=== PATIENT | female | born 1985 | race American Indian/Alaskan Native ===

== ENCOUNTER 2016-11-15 23:37 | Inpatient (IN) | payer OTHER ==
[2016-11-15] MEDS ORDERED: MOTRIN PO ONE (23:58)
[2016-11-16] MEDS ORDERED: NACL 0.9% 500 ML 500 ML IV ONE
[2016-11-16 00:33] LABS: Basophils % (Auto) 0.2 % (0.0-1.8); Hematocrit 33.5 % (30.3-42.9); Hemoglobin 10.9 gm/dl (10.1-14.3); Mean Corpuscular HGB Conc 33 % (30-34); Mean Corpuscular Hemoglobin 27 pg (28-32); Mean Corpuscular Volume 84 fl (79-97); Platelet Count 266 K/mm3 (140-440); Red Blood Count 3.99 M/mm3 (3.65-5.03); Red Cell Distribution Width 12.6 % (13.2-15.2); White Blood Count 6.6 K/mm3 (4.5-11.0)
[2016-11-16 00:45] LABS: INR 0.94 (0.87-1.13)
[2016-11-16 00:46] LABS: Partial Thromboplastin Time 25.2 Sec. (24.2-36.6)
[2016-11-16 00:48] LABS: Alanine Aminotransferase 48 units/L (7-56); Albumin 3.2 g/dL (3.9-5); Alkaline Phosphatase 88 units/L (35-129); Anion Gap 20 mmol/L; BUN/Creatinine Ratio 18.57; Blood Urea Nitrogen 13 mg/dL (7-17); Calcium 8.2 mg/dL (8.4-10.2); Carbon Dioxide 19 mmol/L (22-30); Chloride 101.1 mmol/L (98-107); Glucose 103 mg/dL (65-100); Potassium 3.8 mmol/L (3.6-5.0); Sodium 136 mmol/L (137-145); Total Protein 6.5 g/dL (6.3-8.2)
[2016-11-16 05:14] LABS: Bilirubin,Urine NEG (Negative); Blood,Urine NEG (Negative); Ketones,Urine NEG (Negative); Leukocyte Esterase,Urine TR (Negative); Mucus,Urine FEW /HPF; Nitrite,Urine NEG (Negative); Protein,Urine <15 mg/dL mg/dL (Negative); Urobilinogen,Urine < 2.0 mg/dL (<2.0)
[2016-11-16] MEDS ORDERED: MOTRIN PO ONE ×2 (07:10)
[2016-11-16] MEDS ORDERED: TYLENOL PO ONE (07:18)
[2016-11-16] MEDS ORDERED: NACL 0.9% 1000 ML 1,000 ML IV ONE ×3 (07:21→10:02)
--- NOTE | 2016-11-16 07:21 | Emergency Department Report ---
HPI - General Chief Complaint: Fever Time Seen by Provider: 11/16/16 06:52 - HPI HPI: This is a 31-year-old -[place] female presents the emergency department from home, driving herself in to be seen, with complaints of a 3 day history of fever, chest discomfort while breathing, nausea without vomiting and a one day history of a mixed dry and productive cough. The patient has been taking NSAIDs and acetaminophen for her symptoms that any relief. She has a history of lupus and wonders if this is a lupus flareup. She takes prednisone every day for her lupus. She follows up with a physician through [facility] for lupus and primary care needs. No recent travel or sick contacts at home. She denies any history of FL, CVA, PE/DVT. ED Past Medical Hx - Past Medical History Previous Medical History?: Yes Additional medical history: bronchitis,Lupus - Surgical History Past Surgical History?: Yes Additional Surgical History: 2 c-sections - Social History Smoking Status: Never Smoker Substance Use Type: None - Medications Home Medications: Home Medications Medication Instructions Recorded Confirmed Last Taken Type Ibuprofen [Motrin] 800 mg PO Q8HR PRN 11/16/16 11/16/16 11/15/16 History Mycophenolate [Cellcept] 500 mg PO BID 11/16/16 11/16/16 11/15/16 History Prednisone 10 mg PO QAM 11/16/16 11/16/16 11/15/16 History metroNIDAZOLE [Flagyl TAB] 250 mg PO Q12HR 11/16/16 11/16/16 11/15/16 History ED Review of Systems ROS: Stated complaint: LUPUS PAIN Other details as noted in HPI Comment: All other systems reviewed and negative Constitutional: chills, fever Eyes: denies: eye pain, eye discharge, vision change ENT: denies: ear pain, throat pain Respiratory: cough. denies: wheezing Cardiovascular: chest pain. denies: palpitations Gastrointestinal: nausea. denies: abdominal pain, vomiting Genitourinary: denies: urgency, dysuria, discharge Musculoskeletal: denies: back pain, joint swelling, arthralgia Skin: denies: rash, lesions Neurological: denies: headache, weakness, paresthesias Physical Exam - Physical Exam Vital Signs: Vital Signs 11/15/16 11/16/16 11/16/16 23:51 06:13 07:03 Temperature 102.5 F H 99.0 F 101.7 F H Pulse Rate 123 H 105 H 79 Respiratory 20 16 18 Rate Blood Pressure 116/80 Blood Pressure 134/95 130/59 [Right] O2 Sat by Pulse 100 100 100 Oximetry Physical Exam: GENERAL: The patient is well-developed well-nourished. HEENT: Normocephalic. Atraumatic. Extraocular motions are intact. Patient has moist mucous membranes. Pupils equal reactive to light bilaterally. Oropharynx is clear without tonsillar hypertrophy, erythema or exudates. NECK: Supple. Trachea is midline. CHEST/LUNGS: Clear to auscultation. There is no respiratory distress noted. No tachypnea or accessory muscle use. No cough heard during examination. HEART/CARDIOVASCULAR: Regular. There is no tachycardia. There is no gallop rub or murmur. ABDOMEN: Abdomen is soft, nontender. Patient has normal bowel sounds. There is no abdominal distention. SKIN: Skin is warm and dry. No appreciable edema. NEURO: The patient is awake, alert, and oriented. The patient is cooperative. The patient has no focal neurologic deficits. The patient has normal speech. MUSCULOSKELETAL: There is no tenderness or deformity. There is no limitation range of motion. There is no evidence of acute injury. ED Course Vital Signs 11/15/16 11/16/16 11/16/16 23:51 06:13 07:03 Temperature 102.5 F H 99.0 F 101.7 F H Pulse Rate 123 H 105 H 79 Respiratory 20 16 18 Rate Blood Pressure 116/80 Blood Pressure 134/95 130/59 [Right] O2 Sat by Pulse 100 100 100 Oximetry ED Medical Decision Making - Lab Data Result diagrams: 11/16/16 00:12 11/16/16 00:12 - EKG Data -: EKG Interpreted by Me EKG shows normal: sinus rhythm, axis, intervals, QRS complexes, ST-T waves Rate: tachycardia (116 bpm) - EKG Data When compared to previous EKG there are: previous EKG unavailable Interpretation: normal EKG (with tachycardia) - Radiology Data Radiology results: report reviewed, image reviewed interpreted by me: Chest x-ray did not show any acute process. Heart is normal shape and size. No effusions. No pneumothorax. No signs of pneumonia seen. CTA CHEST INDICATION: Chest pain, elevated d-dimer. COMPARISON: None similar. FINDINGS: Chest CTA performed following intravenous administration of 100 cc of Omnipaque 350. Rotational MIP's also obtained. Borderline cardiomegaly. No effusions. Slight pulmonary arterial hypertension. No aortic aneurysm, dissection or suspicious pulmonary arterial filling defects, to the extent assessed. Patent central airway. No size significant hilar or mediastinal lymphadenopathy, though innumerable bilateral axillary lymph nodes measure up to 1.6 cm. Numerous bilateral supraclavicular lymph nodes as well measure up to 1.5 x 1 cm as on axial image 10, series 2. Unremarkable thyroid. No focal suspicious lung nodules or masses. Slight nonspecific distal esophageal prominence or thickening. Left hepatic lobe tip wraps around the spleen in the left upper quadrant. Faint 4 mm density in the gallbladder on axial image 226 may represent subtle cholelithiasis. Approximately 3.3 x 2.1 cm nonspecific soft tissue masslike density near the sarah hepatis just above the pancreatic neck suspected as on axial image 214 on series 2, amongst others. Similar subtle hypodensity measuring 1.8 cm may also project between the left adrenal and the pancreatic tail as on axial image 206. Unremarkable bones. CONCLUSION: No CT evidence of pulmonary embolism with various other findings, including mild cardiomegaly, slight pulmonary arterial hypertension, numerous shotty bilateral axillary and supraclavicular lymph nodes, cholelithiasis and abnormal soft tissue/possible lymph node masses suspected in the imaged upper abdomen, as detailed above. Lymphoma may be considered clinically in the given setting. - Medical Decision Making 31-year-old female presents emergency Department with 3 day history of fever that will not resolve despite using NSAIDs and acetaminophen as well as some chest pain and now a development of a cough. Patient does have fever and tachycardia upon presentation. She was given a few liters of IV fluid, 2 doses of ibuprofen, one of the Tylenol and eventually her fever does break. Chest x- ray does not show any sign of pneumonia, pleural effusions or any acute process. Patient has a set of negative troponins. Her d-dimer was very elevated so a CT angiography of the chest was done that came back showing no pulmonary embolism or dissection but concern for innumerable axillary lymphadenopathy that raises suspicion for lymphoma. Patient does not appear to be in distress, however the patient does have a history of lupus, this fever of unknown source and chest pain. With a differential includes pericarditis, myocarditis, among other conditions, the patient will be admitted to the hospital for further evaluation and treatment and has been accepted for admission by the hospitalist, Dr lai. - Differential Diagnosis FL, costochondritis, pneumonia, pericarditis, myocarditis Critical Care Time: No Critical care attestation.: If time is entered above; I have spent that time in minutes in the direct care of this critically ill patient, excluding procedure time. ED Disposition Clinical Impression: Lymphadenopathy, axillary, Abnormal CT of the chest Lupus Qualifiers: Systemic lupus erythematosus type: unspecified Systemic lupus erythematosus organ involvement: unspecified Qualified Code(s): M32.9 - Systemic lupus erythematosus, unspecified Fever Qualifiers: Fever type: unspecified Qualified Code(s): R50.9 - Fever, unspecified Chest pain Qualifiers: Chest pain type: unspecified Qualified Code(s): R07.9 - Chest pain, unspecified Disposition: OP ADMITTED IP TO THIS HOSP Is pt being admited?: Yes Does the pt Need Aspirin: Yes Condition: Stable Instructions: Chest Pain (ED) Referrals: PRIMARY CARE, [Primary Care Provider] - 3-5 Days Time of Disposition: 13:43
[2016-11-16] MEDS ORDERED: NACL ONE (08:10)
--- NOTE | 2016-11-16 09:13 | XRay Report ---
CHEST ONE VIEW INDICATION: Possible sepsis. Difficulty breathing and fever for 3 days. History of lupus. COMPARISON: 11/26/2012. FINDINGS: Portable, single, frontal chest radiograph demonstrates stable cardiomediastinal silhouette and clear lungs, given slightly poorer inspiration. Unremarkable bones. CONCLUSION: No acute disease in the chest. Thank you for the opportunity to participate in this patient's care.
--- NOTE | 2016-11-16 09:14 | Cat Scan Report ---
CTA CHEST INDICATION: Chest pain, elevated d-dimer. COMPARISON: None similar. FINDINGS: Chest CTA performed following intravenous administration of 100 cc of Omnipaque 350. Rotational MIP's also obtained. Borderline cardiomegaly. No effusions. Slight pulmonary arterial hypertension. No aortic aneurysm, dissection or suspicious pulmonary arterial filling defects, to the extent assessed. Patent central airway. No size significant hilar or mediastinal lymphadenopathy, though innumerable bilateral axillary lymph nodes measure up to 1.6 cm. Numerous bilateral supraclavicular lymph nodes as well measure up to 1.5 x 1 cm as on axial image 10, series 2. Unremarkable thyroid. No focal suspicious lung nodules or masses. Slight nonspecific distal esophageal prominence or thickening. Left hepatic lobe tip wraps around the spleen in the left upper quadrant. Faint 4 mm density in the gallbladder on axial image 226 may represent subtle cholelithiasis. Approximately 3.3 x 2.1 cm nonspecific soft tissue masslike density near the sarah hepatis just above the pancreatic neck suspected as on axial image 214 on series 2, amongst others. Similar subtle hypodensity measuring 1.8 cm may also project between the left adrenal and the pancreatic tail as on axial image 206. Unremarkable bones. CONCLUSION: No CT evidence of pulmonary embolism with various other findings, including mild cardiomegaly, slight pulmonary arterial hypertension, numerous shotty bilateral axillary and supraclavicular lymph nodes, cholelithiasis and abnormal soft tissue/possible lymph node masses suspected in the imaged upper abdomen, as detailed above. Lymphoma may be considered clinically in the given setting. I phoned the above results to Dr. Pelayo in the ER, 9 AM, 11/16/2016. Thank you for the opportunity to participate in this patient's care.
--- NOTE | 2016-11-16 11:25 | Admit Criteria Form ---
Admission Criteria Documentation: MUSCULOSKELETAL DISEASE GRG Clinical Indications for Admission to Inpatient Care (Place 'X' for any and all applicable criteria): Hospital admission is needed for appropriate care of the patient because of 1 or more of the following: [ ]I. Fracture, dislocation, or other musculoskeletal injury requiring inpatient care(medical) as indicated by 1 or more of the following(4)(5)(6)(7) [ ]a) Vertebral fracture requiring observation for instability or neurologic compromise (8) [ ]b) Compartment syndrome (proven or cannot be ruled out during observation level of care) (9) [ ]c) Limb-threatening injury [ ]d) Major injury requiring inpatient stabilization such as traction initiation or external fixation before internal fixation or closure of complex or open fracture [ ]e) Major injury requiring inpatient treatment after emergency or observation level care (as appropriate) [ ]f) Severe pain requiring acute inpatient management [ ]g) Injury with suspicion of abuse or neglect (eg., child, dependent elderly) [ ]II. Newly diagnosed or suspected bone, joint, or orthopedic device infection (e.g., osteomyelitis, septic arthritis) needing 1 or more of the following(1)(2)(3) [ ]a) IV antibiotics that cannot be initiated in other than inpatient setting (e.g., patient too unstable or home infusion not available) [ ]b) Device removal or replacement [ ]c) Bone or soft tissue debridement [ ]d) Joint drainage (drain placement or repetitive aspirations) [X]III. Severe rheumatologic disease (e.g., systemic lupus erythematosus, rheumatoid arthritis) with complications or comorbidities (Also use Optimal Recovery Care Criteria or General Recovery Criteria as appropriate on the basis of predominant condition), including 1 or more of the following( 10)(11)(12)(13) [ ]a) Severe infection (e.g., RADIOLOGY ASST infection, sepsis) (14) [ ]b) Respiratory complications, including 1 or more of the following : [ ]i) Pleural effusion with respiratory compromise [ ]ii) Pulmonary hypertension with congestive failure [ ]iii) Respiratory failure [ ]iv) Pulmonary hemorrhage (15) [ ]c) Hematologic disease, including 1 or more of the following: [ ]i) Coagulopathy with bleeding [ ]ii) Thrombosis with hypercoagulable state [ ]iii) Thrombotic thrombocytopenic purpura [ ]d) Cerebritis with seizures, psychosis, or other severe abnormalities [ ]e) Vertebral destruction with monitoring needed for cervical myelopathy& possible respiratory compromise [X]f) Exacerbation that requires inpatient treatment (e.g., intravenous immunosuppression) (16) [ ]g) Acute renal failure [ ]h) Cerebritis with seizures, psychosis, Altered mental status, or other neurologic abnormalities [ ]i) Pericardial effusion with tamponade [ ]j) Vertebral destruction, with monitoring needed for cervical myelopathy and possible respiratory compromise [ ]IV. Severe vasculitis with complications or comorbidities (Also use Optimal Recovery Care Criteria General Recovery Criteria as appropriate on the basis of predominant condition), including 1 or more of the following(11)(12)(17)(18)(19)(20) [ ]a) Exacerbation that requires inpatient treatment (e.g., intravenous immunosuppression) (19)(21) [ ]b) Pulmonary hemorrhage (15) [ ]c) RADIOLOGY ASST vasculitis with seizures, psychosis, Altered mental status that is severe or persistent, or other severe abnormalities (22) [ ]d) Cerebral infarction [ ]e) Gastrointestinal ischemia [ ]f) Gangrene or threatened amputation [ ]g) Renal failure (16) [ ]h) Other significant complications of vasculitis ( eg., tissue or organ ischemia, organ dysfunction ) [ ]V. Severe myopathy as indicated by 1 or more of the following (28)(29) [ ]a) New onset of airway compromise or inability to swallow [ ]b) Respiratory deterioration with observation needed for impending respiratory failure [ ]c) Exacerbation that requires inpatient treatment (e.g., intravenous immunosuppression) [ ]. Severe crystal gout (arthropathy) indicated by 1 or more of the following (23)(24) [ ]a) Severe pain requiring acute inpatient management [ ]b) Exacerbation that requires inpatient treatment (e.g., intravenous treatment) [ ]VII.Rhabdomyolysis and 1 or more of the following (25)(26)(27) [ ]a) Acute renal failure [ ]b) Need for intravenous hydration after emergency or observation level care (as appropriate) [ ]c) Inability to maintain oral hydration [ ]d) Change in mental status [ ]e) Electrolyte abnormality that remains after emergency or observation level care (as appropriate) [ ]VIII Post amputation complication, as indicated by ANY ONE of the following [ ]a) Infection [ ]b) Dehiscence [ ]c) Myodesis failure [ ]IX. Severe pain requiring acute inpatient management due to musculoskeletal condition [ ]X. Musculoskeletal Disease and ALL of the following: [ ]a) Symptom or finding for which emergency and observation care have failed or are not considered appropriate (Use General Criteria: Observation Care as appropriate) [ ]b) Presence of ANY ONE of the following [ ]i) A General Admission Criteria [ ]ii) A Pediatric General Admission Criteria The original [facility] [employer] content created by [facility] has been revised. The portions of the content which have been revised are identified through the use of italic text or in bold, and [facility] has neither reviewed nor approved the modified material. All other unmodified content is copyright [facility] [employer]. Please see references footnoted in the [facility] Admission Criteria Met: Yes
[2016-11-16] MEDS ORDERED: BABY ASPIRIN PO ONE (13:43)
[2016-11-16] MEDS ORDERED: NITROSTAT SL PRN (13:44)
[2016-11-16] MEDS ORDERED: SODIUM CHLORIDE FLUSH SYRINGE 10 ML IV PRN (13:44)
--- NOTE | 2016-11-16 14:00 | History and Physical Report ---
History of Present Illness Date of examination: 11/16/16 Chief complaint: Chest pain History of present illness: 31-year-old -[place] female with past medical history significant for SLE presented to the emergency department complaining of mid sternal chest pain for the last 3 days. Chest pain is pressure like, 8/10, with no radiation, associated with SOB, no relieving or alleviating factors. Patient has fever for the last 3 days not relieved with Tylenol. The patient's malar flush is getting worse and complaining of sorethroat and increased in the the size of the lymphnodes. REVIEW OF SYSTEMS: GENERAL: no weight change, no fatigue, no fever HEAD: no head ache EYES: no blurry vision, no acute visual loss EARS: no hearing loss, no discharge, no earache NOSE: no stuffiness, no sneezing, no discharge MOUTH, THROAT AND NECK: no bleeding gums, no sore throat, no swollen neck CARDIAC: no palpitations, no dyspnea on exertion, no orthopnea, no PND, no edema , + chest pain RESPIRATORY: +shortness of breath, no wheeze, no cough, no sputum, no hemoptysis , no asthma GI: no decreased appetite, no nausea, no vomiting, no dysphagia, no diarrhea, no constipation, no abdominal pain. URINARY: no change in frequency, no urgency, no polyuria, no hematuria, no incontinence MUSCULOSKELETAL: no muscle weakness, no pain, no joint stiffness NEUROLOGIC: no loss of sensation/numbness, no tingling, no tremors, no weakness/ paralysis HEMATOLOGIC: no anemia, no easy bruising SKIN: Malar rash. ENDOCRINE: no heat/cold intolerance, no polyuria, no polydipsia, no thyroid problems, no diabetes. PSYCHIATRIC: no anxiety, no depression, no suicidal ideations. Past History Past Medical History: other (SLE) Past Surgical History: Social history: full code. denies: smoking, alcohol abuse, prescription drug abuse, IV drug use Family history: no significant family history Medications and Allergies Allergies Allergy/AdvReac Type Severity Reaction Status Date / Time acetaminophen [From Percocet] Allergy Hives Verified 07/30/14 08:04 hydroxychloroquine sulfate Allergy Shortness Verified 11/15/16 23:53 [From Plaquenil] of Breath oxycodone HCl [From Percocet] Allergy Hives Verified 07/30/14 08:04 Home Medications Medication Instructions Recorded Confirmed Last Taken Type Ibuprofen [Motrin] 800 mg PO Q8HR PRN 11/16/16 11/16/16 11/15/16 History Mycophenolate [Cellcept] 500 mg PO BID 11/16/16 11/16/16 11/15/16 History Prednisone 10 mg PO QAM 11/16/16 11/16/16 11/15/16 History metroNIDAZOLE [Flagyl TAB] 250 mg PO Q12HR 11/16/16 11/16/16 11/15/16 History Active Meds: Active Medications Aspirin (Baby Aspirin) 81 mg PO QDAY MORA Docusate Sodium (Colace) 100 mg PO BID MORA Enoxaparin Sodium (Lovenox) 40 mg SUB-Q QDAY MORA Famotidine (Pepcid) 20 mg PO BID MORA Ibuprofen (Motrin) 800 mg PO Q8HR PRN PRN Reason: Pain Methylprednisolone Sodium Succinate (Solu-Medrol) 40 mg IV BID MORA Morphine Sulfate (Morphine) 2 mg IV Q4H PRN PRN Reason: Chest Pain Mycophenolate Mofetil (Cellcept) 500 mg PO BID MORA Nitroglycerin (Nitrostat) 0.4 mg SL Q5M PRN PRN Reason: Chest Pain Sodium Chloride (Sodium Chloride Flush Syringe 10 Ml) 10 ml IV PRN PRN PRN Reason: LINE FLUSH Exam - Physical Exam Narrative exam: Not in cardiopulmonary distress. The patient appeared well nourished and normally developed. Vital signs as documented. Head exam is unremarkable. No scleral icterus . Neck is without jugular venous distension, thyromegaly, or carotid bruits. Lungs are clear to auscultation. Cardiac exam reveals regular rate and Rhythm. First and second heart sounds normal. No murmurs, rubs or gallops. Abdominal exam reveals normal bowel sounds, no masses, no organomegaly and no aortic enlargement. Extremities are nonedematous and both femoral and pedal pulses are normal. Skin malar rash. [employer]IOR [employer]: Alert and oriented 3. No focal weakness. - Constitutional Vitals: Temp Pulse Resp BP Pulse Ox 98.7 F 101 H 18 100/51 98 11/16/16 11:41 11/16/16 11:41 11/16/16 11:41 11/16/16 11:41 11/16/16 11:41 Results - Labs CBC & Chem 7: 11/16/16 00:12 11/16/16 00:12 Labs: Laboratory Last Values WBC 6.6 K/mm3 (4.5-11.0) 11/16/16 00:12 RBC 3.99 M/mm3 (3.65-5.03) 11/16/16 00:12 Hgb 10.9 gm/dl (10.1-14.3) 11/16/16 00:12 Hct 33.5 % (30.3-42.9) 11/16/16 00:12 MCV 84 fl (79-97) 11/16/16 00:12 MCH 27 pg (28-32) L 11/16/16 00:12 MCHC 33 % (30-34) 11/16/16 00:12 RDW 12.6 % (13.2-15.2) L 11/16/16 00:12 Plt Count 266 K/mm3 (140-440) 11/16/16 00:12 Lymph % (Auto) 10.5 % (13.4-35.0) L 11/16/16 00:12 Porter % (Auto) 3.7 % (0.0-7.3) 11/16/16 00:12 Eos % (Auto) 0.0 % (0.0-4.3) 11/16/16 00:12 Baso % (Auto) 0.2 % (0.0-1.8) 11/16/16 00:12 Lymph # 0.7 K/mm3 (1.2-5.4) L 11/16/16 00:12 Porter # 0.2 K/mm3 (0.0-0.8) 11/16/16 00:12 Eos # 0.0 K/mm3 (0.0-0.4) 11/16/16 00:12 Baso # 0.0 K/mm3 (0.0-0.1) 11/16/16 00:12 Seg Neutrophils % 85.6 % (40.0-70.0) H 11/16/16 00:12 Seg Neutrophils # 5.6 K/mm3 (1.8-7.7) 11/16/16 00:12 PT 12.5 Sec. (12.2-14.9) 11/16/16 00:12 INR 0.94 (0.87-1.13) 11/16/16 00:12 APTT 25.2 Sec. (24.2-36.6) 11/16/16 00:12 D-Dimer 1339.81 ng/mlDDU (0-234) H 11/16/16 07:29 VBG pH 7.507 (7.320-7.420) H 11/16/16 00:12 Sodium 136 mmol/L (137-145) L 11/16/16 00:12 Potassium 3.8 mmol/L (3.6-5.0) 11/16/16 00:12 Chloride 101.1 mmol/L (98-107) 11/16/16 00:12 Carbon Dioxide 19 mmol/L (22-30) L 11/16/16 00:12 Anion Gap 20 mmol/L 11/16/16 00:12 BUN 13 mg/dL (7-17) 11/16/16 00:12 Creatinine 0.7 mg/dL (0.7-1.2) 11/16/16 00:12 Estimated GFR > 60 ml/min 11/16/16 00:12 BUN/Creatinine Ratio 18.57 % 11/16/16 00:12 Glucose 103 mg/dL (65-100) H 11/16/16 00:12 Lactic Acid 1.50 mmol/L (0.7-2.0) 11/16/16 03:06 Calcium 8.2 mg/dL (8.4-10.2) L 11/16/16 00:12 Total Bilirubin 0.20 mg/dL (0.1-1.2) 11/16/16 00:12 AST 53 units/L (5-40) H 11/16/16 00:12 ALT 48 units/L (7-56) 11/16/16 00:12 Alkaline Phosphatase 88 units/L (35-129) 11/16/16 00:12 Troponin T < 0.010 ng/mL (0.00-0.029) 11/16/16 06:15 Total Protein 6.5 g/dL (6.3-8.2) 11/16/16 00:12 Albumin 3.2 g/dL (3.9-5) L 11/16/16 00:12 Albumin/Globulin Ratio 1.0 % 11/16/16 00:12 HCG, Qual Negative (Negative) 11/16/16 00:12 Urine Color Yellow (Yellow) 11/16/16 04:39 Urine Turbidity Clear (Clear) 11/16/16 04:39 Urine pH 6.0 (5.0-7.0) 11/16/16 04:39 Ur Specific [place] 1.018 (1.003-1.030) 11/16/16 04:39 Urine Protein <15 mg/dl mg/dL (Negative) 11/16/16 04:39 Urine Glucose (UA) Neg mg/dL (Negative) 11/16/16 04:39 Urine Ketones Neg mg/dL (Negative) 11/16/16 04:39 Urine Blood Neg (Negative) 11/16/16 04:39 Urine Nitrite Neg (Negative) 11/16/16 04:39 Urine Bilirubin Neg (Negative) 11/16/16 04:39 Urine Urobilinogen < 2.0 mg/dL (<2.0) 11/16/16 04:39 Ur Leukocyte Esterase Tr (Negative) 11/16/16 04:39 Urine WBC (Auto) 1.0 /HPF (0.0-6.0) 11/16/16 04:39 Urine RBC (Auto) 1.0 /HPF (0.0-6.0) 11/16/16 04:39 U Epithel Cells (Auto) 8.0 /HPF (0-13.0) 11/16/16 04:39 Urine Mucus Few /HPF 11/16/16 04:39 Assessment and Plan Assessment and plan: Chest pain - serial cardiac enzymes and EKG - Stress test tomorrow Lupus flare up - solu-medrol - restart her home medications Fever - likely due to SLE flare UP - Ibuprofen - Blood culture DVT prophylaxis Lovenox Disposition To telemetry floor. Advance Directives: Yes (full code) VTE prophylaxis?: Chemical Plan of care discussed with patient/family: Yes
[2016-11-16] MEDS: MORPHINE IV PRN ×2 (14:45→21:35)
[2016-11-16 17:19] LABS: Creatine Kinase 62 units/L (30-135)
[2016-11-16 17:20] LABS: Creatine Kinase MB < 1.0 ng/mL (0.0-4.0)
[2016-11-16] MEDS ORDERED: CITRATE OF MAGNESIA PO ONE (18:59)
[2016-11-16 21:24] LABS: Creatine Kinase 62 units/L (30-135); Creatine Kinase MB < 1.0 ng/mL (0.0-4.0)
[2016-11-16] MEDS: PEPCID PO SCH (21:35)
[2016-11-16] MEDS: COLACE PO SCH (21:36)
[2016-11-16] MEDS: CELLCEPT PO SCH (22:31)
[2016-11-17] MEDS ORDERED: LEXISCAN IV ONE ×3 (08:25→10:34)
--- NOTE | 2016-11-17 11:17 | Progress Note ---
Assessment and Plan Assessment and plan: Patient is a 31-year-old woman with history of SLE that was diagnosed May 2016. She goes to the rheumatology lupus clinic at [facility]. She was allergic to plaquenil and another rheumatologic agent that she cant remember; so they put her on CellCept but she has not experienced any improvement in her symptoms or rash. Her rash, axillary and cervical lymph nodes are worsening. Her fatigue is worsening. 2 weeks ago she was at [facility] with similar complaints. She drove herself to [facility] emergency department yesterday with chest pains, counseling done and high fevers. CTA of the chest showed lymphadenopathy axillary and supraclavicular lymph nodes, cholelithiasis, no PE. Cardiac enzymes and troponin negative. -Chest pain, atypical most likely due to lymphadenopathy rule out ischemia: Stress test pending, echo pending -SLE flare: Treat with IV steroids -Immunocompromise state on CellCept self, concerning for infection with high fevers, UA negative for UTI, CT chest did not mention any pneumonia, white blood cell count normal but she is on CellCept (do not know her if she was tested for Tb at [place]), blood culture pending, worsening lymphadenopathy and high fevers may be associated with lymphoma: Consulted hematology oncology, added empiric antibiotic -DVT prophylaxis: SCDs and subcutaneous Lovenox full code History Interval history: Patient seen and examined. Follow up on chest pains. Chest pains are diffuse and constant associated with shortness of breath. Overnight uneventful. No n/v or severe headaches. Imaging, old records, testing, labs, nursing notes reviewed. Hospitalist Physical - Physical exam Narrative exam: GEN: Ill-appearing BMI 34.2 NAD, AWAKE, ALERT, ORIENTATED 3 HEENT: NCAT, butterfly rash across bridge of nose, EOMI, OP CLEAR, alopecia NECK: SUPPLE, NO THYROMEGALY, NO JVD, NO LAD CVS: RRR, NORMAL S1S2 LUNGS/CHEST: CTA B, NORMAL CHEST EXPANSION B, GOOD AIR ENTRY B ABD: SOFT, diffuse tenderness llq especially, GBS, NO REBOUND OR GUARDING EXT/SKIN: NO SIGNIFICANT EDEMA, discoid plaques on ext MSK: FROM X 4 EXTREMITIES NEURO: CN 2-12 GROSSLY INTACT, NO new FOCAL DEFICITS PSY: CALM - Constitutional Vitals: Temp Pulse Resp BP Pulse Ox 98.2 F 88 16 116/62 95 11/17/16 07:45 11/17/16 07:45 11/17/16 07:45 11/17/16 07:45 11/17/16 07:45 Results - Labs CBC & Chem 7: 11/16/16 00:12 11/16/16 00:12 Labs: Laboratory Last Values WBC 6.6 K/mm3 (4.5-11.0) 11/16/16 00:12 RBC 3.99 M/mm3 (3.65-5.03) 11/16/16 00:12 Hgb 10.9 gm/dl (10.1-14.3) 11/16/16 00:12 Hct 33.5 % (30.3-42.9) 11/16/16 00:12 MCV 84 fl (79-97) 11/16/16 00:12 MCH 27 pg (28-32) L 11/16/16 00:12 MCHC 33 % (30-34) 11/16/16 00:12 RDW 12.6 % (13.2-15.2) L 11/16/16 00:12 Plt Count 266 K/mm3 (140-440) 11/16/16 00:12 Lymph % (Auto) 10.5 % (13.4-35.0) L 11/16/16 00:12 [place] % (Auto) 3.7 % (0.0-7.3) 11/16/16 00:12 Eos % (Auto) 0.0 % (0.0-4.3) 11/16/16 00:12 Baso % (Auto) 0.2 % (0.0-1.8) 11/16/16 00:12 Lymph # 0.7 K/mm3 (1.2-5.4) L 11/16/16 00:12 [place] # 0.2 K/mm3 (0.0-0.8) 11/16/16 00:12 Eos # 0.0 K/mm3 (0.0-0.4) 11/16/16 00:12 Baso # 0.0 K/mm3 (0.0-0.1) 11/16/16 00:12 Seg Neutrophils % 85.6 % (40.0-70.0) H 11/16/16 00:12 Seg Neutrophils # 5.6 K/mm3 (1.8-7.7) 11/16/16 00:12 PT 12.5 Sec. (12.2-14.9) 11/16/16 00:12 INR 0.94 (0.87-1.13) 11/16/16 00:12 APTT 25.2 Sec. (24.2-36.6) 11/16/16 00:12 D-Dimer 1339.81 ng/mlDDU (0-234) H 11/16/16 07:29 VBG pH 7.507 (7.320-7.420) H 11/16/16 00:12 Sodium 136 mmol/L (137-145) L 11/16/16 00:12 Potassium 3.8 mmol/L (3.6-5.0) 11/16/16 00:12 Chloride 101.1 mmol/L (98-107) 11/16/16 00:12 Carbon Dioxide 19 mmol/L (22-30) L 11/16/16 00:12 Anion Gap 20 mmol/L 11/16/16 00:12 BUN 13 mg/dL (7-17) 11/16/16 00:12 Creatinine 0.7 mg/dL (0.7-1.2) 11/16/16 00:12 Estimated GFR > 60 ml/min 11/16/16 00:12 BUN/Creatinine Ratio 18.57 % 11/16/16 00:12 Glucose 103 mg/dL (65-100) H 11/16/16 00:12 Lactic Acid 1.50 mmol/L (0.7-2.0) 11/16/16 03:06 Calcium 8.2 mg/dL (8.4-10.2) L 11/16/16 00:12 Total Bilirubin 0.20 mg/dL (0.1-1.2) 11/16/16 00:12 AST 53 units/L (5-40) H 11/16/16 00:12 ALT 48 units/L (7-56) 11/16/16 00:12 Alkaline Phosphatase 88 units/L (35-129) 11/16/16 00:12 Total Creatine Kinase 62 units/L (30-135) 11/16/16 20:42 CK-MB (CK-2) < 1.0 ng/mL (0.0-4.0) 11/16/16 20:42 CK-MB (CK-2) Rel Index 1.6 (0-4) 11/16/16 20:42 Troponin T < 0.010 ng/mL (0.00-0.029) 11/16/16 20:42 Total Protein 6.5 g/dL (6.3-8.2) 11/16/16 00:12 Albumin 3.2 g/dL (3.9-5) L 11/16/16 00:12 Albumin/Globulin Ratio 1.0 % 11/16/16 00:12 Triglycerides 227 mg/dL (2-149) H 11/16/16 06:15 Cholesterol 161 mg/dL (50-199) 11/16/16 06:15 LDL Cholesterol Direct 70 mg/dL (50-130) 11/16/16 06:15 HDL Cholesterol 46 mg/dL (40-59) 11/16/16 06:15 Cholesterol/HDL Ratio 3.50 % 11/16/16 06:15 HCG, Qual Negative (Negative) 11/16/16 00:12 Urine Color Yellow (Yellow) 11/16/16 04:39 Urine Turbidity Clear (Clear) 11/16/16 04:39 Urine pH 6.0 (5.0-7.0) 11/16/16 04:39 Ur Specific [place] 1.018 (1.003-1.030) 11/16/16 04:39 Urine Protein <15 mg/dl mg/dL (Negative) 11/16/16 04:39 Urine Glucose (UA) Neg mg/dL (Negative) 11/16/16 04:39 Urine Ketones Neg mg/dL (Negative) 11/16/16 04:39 Urine Blood Neg (Negative) 11/16/16 04:39 Urine Nitrite Neg (Negative) 11/16/16 04:39 Urine Bilirubin Neg (Negative) 11/16/16 04:39 Urine Urobilinogen < 2.0 mg/dL (<2.0) 11/16/16 04:39 Ur Leukocyte Esterase Tr (Negative) 11/16/16 04:39 Urine WBC (Auto) 1.0 /HPF (0.0-6.0) 11/16/16 04:39 Urine RBC (Auto) 1.0 /HPF (0.0-6.0) 05/26/17 04:39 U Epithel Cells (Auto) 8.0 /HPF (0-13.0) 11/16/16 04:39 Urine Mucus Few /HPF 11/16/16 04:39
[2016-11-17] MEDS: ROCEPHIN/NS 1 GM/50 ML 1 GM/50 ML BAG IV SCH (14:54)
[2016-11-17] MEDS: LOVENOX SUB-Q SCH (14:55)
[2016-11-17] MEDS: BABY ASPIRIN PO SCH (14:55)
[2016-11-17] MEDS: COLACE PO SCH ×2 (14:56→22:07)
[2016-11-17] MEDS: PEPCID PO SCH ×2 (14:56→22:07)
[2016-11-17] MEDS: MOTRIN PO PRN (15:28)
[2016-11-17] MEDS: CELLCEPT PO SCH ×2 (16:41→22:07)
[2016-11-18 06:11] LABS: Hematocrit 32.6 % (30.3-42.9); Hemoglobin 10.5 gm/dl (10.1-14.3); Mean Corpuscular HGB Conc 32 % (30-34); Mean Corpuscular Hemoglobin 27 pg (28-32); Mean Corpuscular Volume 84 fl (79-97); Platelet Count 268 K/mm3 (140-440); Red Blood Count 3.88 M/mm3 (3.65-5.03); Red Cell Distribution Width 12.6 % (13.2-15.2); White Blood Count 5.5 K/mm3 (4.5-11.0)
[2016-11-18 06:42] LABS: BUN/Creatinine Ratio TNR; Blood Urea Nitrogen TNR mg/dL (7-17); Carbon Dioxide TNR mmol/L (22-30); Chloride TNR mmol/L (98-107); Glucose TNR mg/dL (65-100); Potassium TNR mmol/L (3.6-5.0); Sodium TNR mmol/L (137-145)
[2016-11-18 06:43] LABS: Anion Gap TNR mmol/L; Calcium TNR mg/dL (8.4-10.2)
[2016-11-18 07:49] LABS: Anion Gap 18 mmol/L; Blood Urea Nitrogen 9 mg/dL (7-17); Calcium 8.4 mg/dL (8.4-10.2); Carbon Dioxide 23 mmol/L (22-30); Chloride 104.2 mmol/L (98-107); Glucose 117 mg/dL (65-100); Potassium 4.3 mmol/L (3.6-5.0); Sodium 141 mmol/L (137-145)
[2016-11-18] MEDS: MOTRIN PO PRN (08:12)
[2016-11-18] MEDS: LOVENOX SUB-Q SCH (10:34)
[2016-11-18] MEDS: ROCEPHIN/NS 1 GM/50 ML 1 GM/50 ML BAG IV SCH (10:34)
[2016-11-18] MEDS: BABY ASPIRIN PO SCH (10:50)
[2016-11-18] MEDS: PEPCID PO SCH ×2 (10:50→22:07)
[2016-11-18] MEDS: COLACE PO SCH ×2 (10:50→22:07)
[2016-11-18] MEDS: CELLCEPT PO SCH ×2 (10:59→22:07)
--- NOTE | 2016-11-18 14:03 | Progress Note ---
Assessment and Plan Assessment and plan: Patient is a 31-year-old woman with history of SLE that was diagnosed May 2016. She goes to the rheumatology lupus clinic at [facility]. She was allergic to plaquenil and another rheumatologic agent that she cant remember; so they put her on CellCept but she has not experienced any improvement in her symptoms or rash. Her rash, axillary and cervical lymph nodes are worsening. Her fatigue is worsening. 2 weeks ago she was at [facility] with similar complaints. She drove herself to [facility] emergency department yesterday with chest pains, counseling done and high fevers. CTA of the chest showed lymphadenopathy axillary and supraclavicular lymph nodes, cholelithiasis, no PE. Cardiac enzymes and troponin negative. -LAD ? lymphoma: ?lymph node bx, I called and spoke with Dr. MCARTHUR, oncologist, will obtain IR for lymph node bx, send for flow cytometry, cytology, pcr technique sequencing to r/o TB (pt not coughing at present)/infection -Cholelithiasis: ordered abd u/s. , test delayed until Saturday, pt agreed and voice understanding -Chest pain, atypical most likely due to lymphadenopathy ruled out ischemiam with negative Stress test negative but echo pending -SLE flare: Treat with IV steroids -Immunocompromise state on CellCept, concerning for infection with high fevers, UA negative for UTI, CT chest did not mention any pneumonia, white blood cell count normal but she is on CellCept (do not know her if she was tested for Tb at [place]), blood culture pending, worsening lymphadenopathy and high fevers may be associated with lymphoma: Consulted hematology oncology, added empiric antibiotic -DVT prophylaxis: SCDs and subcutaneous Lovenox full code History Interval history: Patient seen and examined. Follow up on chest pains. Chest pains are diffuse and constant associated with shortness of breath. Overnight uneventful. No n/v or severe headaches. Imaging, old records, testing, labs, nursing notes reviewed. Hospitalist Physical - Physical exam Narrative exam: GEN: Ill-appearing BMI 34.2 NAD, AWAKE, ALERT, ORIENTATED 3 HEENT: NCAT, butterfly rash across bridge of nose, EOMI, OP CLEAR, alopecia NECK: SUPPLE, NO THYROMEGALY, NO JVD, NO LAD CVS: RRR, NORMAL S1S2 LUNGS/CHEST: CTA B, NORMAL CHEST EXPANSION B, GOOD AIR ENTRY B ABD: SOFT, diffuse tenderness llq especially, GBS, NO REBOUND OR GUARDING EXT/SKIN: NO SIGNIFICANT EDEMA, discoid plaques on ext MSK: FROM X 4 EXTREMITIES NEURO: CN 2-12 GROSSLY INTACT, NO new FOCAL DEFICITS PSY: CALM - Constitutional Vitals: Temp Pulse Resp BP Pulse Ox 98.2 F 88 18 143/81 96 11/18/16 07:30 11/18/16 07:30 11/18/16 07:30 11/18/16 07:30 11/18/16 07:30 Results - Labs CBC & Chem 7: 11/18/16 05:36 11/18/16 07:03 Labs: Laboratory Last Values WBC 5.5 K/mm3 (4.5-11.0) 11/18/16 05:36 RBC 3.88 M/mm3 (3.65-5.03) 11/18/16 05:36 Hgb 10.5 gm/dl (10.1-14.3) 11/18/16 05:36 Hct 32.6 % (30.3-42.9) 11/18/16 05:36 MCV 84 fl (79-97) 11/18/16 05:36 MCH 27 pg (28-32) L 11/18/16 05:36 MCHC 32 % (30-34) 11/18/16 05:36 RDW 12.6 % (13.2-15.2) L 11/18/16 05:36 Plt Count 268 K/mm3 (140-440) 11/18/16 05:36 Lymph % (Auto) 10.5 % (13.4-35.0) L 11/16/16 00:12 [place] % (Auto) 3.7 % (0.0-7.3) 11/16/16 00:12 Eos % (Auto) 0.0 % (0.0-4.3) 11/16/16 00:12 Baso % (Auto) 0.2 % (0.0-1.8) 11/16/16 00:12 Lymph # 0.7 K/mm3 (1.2-5.4) L 11/16/16 00:12 [place] # 0.2 K/mm3 (0.0-0.8) 11/16/16 00:12 Eos # 0.0 K/mm3 (0.0-0.4) 11/16/16 00:12 Baso # 0.0 K/mm3 (0.0-0.1) 11/16/16 00:12 Seg Neutrophils % 85.6 % (40.0-70.0) H 11/16/16 00:12 Seg Neutrophils # 5.6 K/mm3 (1.8-7.7) 11/16/16 00:12 PT 12.5 Sec. (12.2-14.9) 11/16/16 00:12 INR 0.94 (0.87-1.13) 11/16/16 00:12 APTT 25.2 Sec. (24.2-36.6) 11/16/16 00:12 D-Dimer 1339.81 ng/mlDDU (0-234) H 11/16/16 07:29 VBG pH 7.507 (7.320-7.420) H 11/16/16 00:12 Sodium 141 mmol/L (137-145) 11/18/16 07:03 Potassium 4.3 mmol/L (3.6-5.0) 11/18/16 07:03 Chloride 104.2 mmol/L (98-107) 11/18/16 07:03 Carbon Dioxide 23 mmol/L (22-30) 11/18/16 07:03 Anion Gap 18 mmol/L 11/18/16 07:03 BUN 9 mg/dL (7-17) 11/18/16 07:03 Creatinine 0.5 mg/dL (0.7-1.2) L 11/18/16 07:03 Estimated GFR > 60 ml/min 11/18/16 07:03 BUN/Creatinine Ratio 18.00 % 11/18/16 07:03 Glucose 117 mg/dL (65-100) H 11/18/16 07:03 Lactic Acid 1.50 mmol/L (0.7-2.0) 11/16/16 03:06 Calcium 8.4 mg/dL (8.4-10.2) 11/18/16 07:03 Total Bilirubin 0.20 mg/dL (0.1-1.2) 11/16/16 00:12 AST 53 units/L (5-40) H 11/16/16 00:12 ALT 48 units/L (7-56) 11/16/16 00:12 Alkaline Phosphatase 88 units/L (35-129) 11/16/16 00:12 Total Creatine Kinase 62 units/L (30-135) 11/16/16 20:42 CK-MB (CK-2) < 1.0 ng/mL (0.0-4.0) 11/16/16 20:42 CK-MB (CK-2) Rel Index 1.6 (0-4) 11/16/16 20:42 Troponin T < 0.010 ng/mL (0.00-0.029) 11/16/16 20:42 Total Protein 6.5 g/dL (6.3-8.2) 11/16/16 00:12 Albumin 3.2 g/dL (3.9-5) L 11/16/16 00:12 Albumin/Globulin Ratio 1.0 % 11/16/16 00:12 Triglycerides 227 mg/dL (2-149) H 11/16/16 06:15 Cholesterol 161 mg/dL (50-199) 11/16/16 06:15 LDL Cholesterol Direct 70 mg/dL (50-130) 11/16/16 06:15 HDL Cholesterol 46 mg/dL (40-59) 11/16/16 06:15 Cholesterol/HDL Ratio 3.50 % 11/16/16 06:15 HCG, Qual Negative (Negative) 11/16/16 00:12 Urine Color Yellow (Yellow) 11/16/16 04:39 Urine Turbidity Clear (Clear) 11/16/16 04:39 Urine pH 6.0 (5.0-7.0) 11/16/16 04:39 Ur Specific [place] 1.018 (1.003-1.030) 11/16/16 04:39 Urine Protein <15 mg/dl mg/dL (Negative) 11/16/16 04:39 Urine Glucose (UA) Neg mg/dL (Negative) 11/16/16 04:39 Urine Ketones Neg mg/dL (Negative) 11/16/16 04:39 Urine Blood Neg (Negative) 11/16/16 04:39 Urine Nitrite Neg (Negative) 11/16/16 04:39 Urine Bilirubin Neg (Negative) 11/16/16 04:39 Urine Urobilinogen < 2.0 mg/dL (<2.0) 11/16/16 04:39 Ur Leukocyte Esterase Tr (Negative) 11/16/16 04:39 Urine WBC (Auto) 1.0 /HPF (0.0-6.0) 11/16/16 04:39 Urine RBC (Auto) 1.0 /HPF (0.0-6.0) 11/16/16 04:39 U Epithel Cells (Auto) 8.0 /HPF (0-13.0) 11/16/16 04:39 Urine Mucus Few /HPF 11/16/16 04:39
[2016-11-18] MEDS: MORPHINE IV PRN (16:56)
--- NOTE | 2016-11-18 18:58 | Ultrasound Report ---
FINAL REPORT EXAM: US ABDOMEN COMPLETE HISTORY: cholelithiasis and abd pain TECHNIQUE: Real-time sonography was performed of the abdomen. Images are submitted for interpretation. PRIORS: CT scan from 11/16/2016 axial images to FINDINGS: The liver has a normal homogeneous echotexture without focal lesions. The there are 2 calcified stones in the gallbladder measuring 2.0 and 1.7 cm respectively. There is no gallbladder wall thickening or pericholecystic fluid. There is no evidence of biliary dilatation, the common bile duct measures 4 mm. There is a well-circumscribed hypoechoic lesion between the liver and the pancreas measuring 2.7 x 0.8 x 3.[address] scan, probably represents an enlarged lymph node. The pancreas has a normal echogenicity and appearance. There is an echogenic area in the abdominal aorta without corresponding abnormality on CT. This probably represents reverberation artifact. The visualized segments of the inferior vena cava appear normal. The spleen appears normal, measuring 9.0 x 3.6 x 3.9 cm. The kidneys appear normal in size, shape and echogenicity with the right kidney measuring 11.0 x 3.7 x 5.0 cm and the left measuring 10.3 x 5.6 x 4.7 cm. IMPRESSION: 1. Cholelithiasis without sonographic evidence of acute cholecystitis 2. Hypoechoic lesion between the liver and pancreas probably represents an enlarged lymph nodes. 3. Suspect aortic artifact. There is no corresponding abnormality on the comparison CT scan.
--- NOTE | 2016-11-19 09:36 | Progress Note ---
Assessment and Plan Assessment and plan: Patient is a 31-year-old woman with history of SLE that was diagnosed May 2016. She goes to the rheumatology clinic at [facility] (she was scheduled to go to Lupus clinic at [place]). She was allergic to plaquenil and another rheumatologic agent that she can't remember; so they put her on CellCept but she has not experienced any improvement in her symptoms or rash. Her rash, axillary and cervical lymph nodes are worsening. Her fatigue is worsening. 2 weeks ago she was at [facility] with similar complaints. She drove herself to [facility] emergency department yesterday with chest pains, counseling done and high fevers. CTA of the chest showed lymphadenopathy axillary and supraclavicular lymph nodes, cholelithiasis, no PE. Cardiac enzymes and troponin negative. -LAD ? lymphoma: lymph node bx, I called and spoke with Dr. MCARTHUR, oncologist, will obtain IR for lymph node bx, send for flow cytometry, cytology, pcr technique sequencing to r/o TB (pt not coughing at present)/infection -Cholelithiasis without acute cholecystitis reviewed abdominal ultrasound -Chest pain, atypical most likely due to lymphadenopathy ruled out ischemiam with negative Stress test negative and 11/16/2016 echocardiogram shows estimated ejection fraction is 5560 percent, trace MR, trace [place], mild [place], left atrium is mildly dilated. -SLE flare: Treat with IV steroids -Immunocompromise state on CellCept, concerning for infection with high fevers, UA negative for UTI, CT chest did not mention any pneumonia, white blood cell count normal but she is on CellCept (do not know her if she was tested for Tb at [place]), blood culture pending, worsening lymphadenopathy and high fevers may be associated with lymphoma: Consulted hematology oncology, added empiric antibiotic -DVT prophylaxis: SCDs and hold subcutaneous Lovenox for bx full code Disposition: IR for bx tomorrow then possible d/c with home steroids, needs follow up Bx with Dr. Pandey history History Interval history: Patient seen and examined. Follow up on chest pains. Chest pains are diffuse and constant associated with shortness of breath. Overnight uneventful. No n/v or severe headaches. Imaging, old records, testing, labs, nursing notes reviewed. Hospitalist Physical - Physical exam Narrative exam: GEN: Ill-appearing BMI 34.2 NAD, AWAKE, ALERT, ORIENTATED 3 HEENT: NCAT, butterfly rash across bridge of nose, EOMI, OP CLEAR, alopecia NECK: SUPPLE, NO THYROMEGALY, NO JVD, NO LAD CVS: RRR, NORMAL S1S2 LUNGS/CHEST: CTA B, NORMAL CHEST EXPANSION B, GOOD AIR ENTRY B ABD: SOFT, diffuse tenderness llq especially, GBS, NO REBOUND OR GUARDING EXT/SKIN: NO SIGNIFICANT EDEMA, discoid plaques on ext MSK: FROM X 4 EXTREMITIES NEURO: CN 2-12 GROSSLY INTACT, NO new FOCAL DEFICITS PSY: CALM - Constitutional Vitals: Temp Pulse Resp BP Pulse Ox 98.7 F 78 18 126/93 99 11/19/16 08:36 11/19/16 08:36 11/19/16 08:36 11/19/16 08:36 11/19/16 08:36 Results - Labs CBC & Chem 7: 11/18/16 05:36 11/18/16 07:03 Labs: Laboratory Last Values WBC 5.5 K/mm3 (4.5-11.0) 11/18/16 05:36 RBC 3.88 M/mm3 (3.65-5.03) 11/18/16 05:36 Hgb 10.5 gm/dl (10.1-14.3) 11/18/16 05:36 Hct 32.6 % (30.3-42.9) 11/18/16 05:36 MCV 84 fl (79-97) 11/18/16 05:36 MCH 27 pg (28-32) L 11/18/16 05:36 MCHC 32 % (30-34) 11/18/16 05:36 RDW 12.6 % (13.2-15.2) L 11/18/16 05:36 Plt Count 268 K/mm3 (140-440) 11/18/16 05:36 Lymph % (Auto) 10.5 % (13.4-35.0) L 11/16/16 00:12 [place] % (Auto) 3.7 % (0.0-7.3) 11/16/16 00:12 Eos % (Auto) 0.0 % (0.0-4.3) 11/16/16 00:12 Baso % (Auto) 0.2 % (0.0-1.8) 11/16/16 00:12 Lymph # 0.7 K/mm3 (1.2-5.4) L 11/16/16 00:12 [place] # 0.2 K/mm3 (0.0-0.8) 11/16/16 00:12 Eos # 0.0 K/mm3 (0.0-0.4) 11/16/16 00:12 Baso # 0.0 K/mm3 (0.0-0.1) 11/16/16 00:12 Seg Neutrophils % 85.6 % (40.0-70.0) H 11/16/16 00:12 Seg Neutrophils # 5.6 K/mm3 (1.8-7.7) 11/16/16 00:12 PT 12.5 Sec. (12.2-14.9) 11/16/16 00:12 INR 0.94 (0.87-1.13) 11/16/16 00:12 APTT 25.2 Sec. (24.2-36.6) 11/16/16 00:12 D-Dimer 1339.81 ng/mlDDU (0-234) H 11/16/16 07:29 VBG pH 7.507 (7.320-7.420) H 11/16/16 00:12 Sodium 141 mmol/L (137-145) 11/18/16 07:03 Potassium 4.3 mmol/L (3.6-5.0) 11/18/16 07:03 Chloride 104.2 mmol/L (98-107) 11/18/16 07:03 Carbon Dioxide 23 mmol/L (22-30) 11/18/16 07:03 Anion Gap 18 mmol/L 11/18/16 07:03 BUN 9 mg/dL (7-17) 11/18/16 07:03 Creatinine 0.5 mg/dL (0.7-1.2) L 11/18/16 07:03 Estimated GFR > 60 ml/min 11/18/16 07:03 BUN/Creatinine Ratio 18.00 % 11/18/16 07:03 Glucose 117 mg/dL (65-100) H 11/18/16 07:03 Lactic Acid 1.50 mmol/L (0.7-2.0) 11/16/16 03:06 Calcium 8.4 mg/dL (8.4-10.2) 11/18/16 07:03 Total Bilirubin 0.20 mg/dL (0.1-1.2) 11/16/16 00:12 AST 53 units/L (5-40) H 11/16/16 00:12 ALT 48 units/L (7-56) 11/16/16 00:12 Alkaline Phosphatase 88 units/L (35-129) 11/16/16 00:12 Total Creatine Kinase 62 units/L (30-135) 11/16/16 20:42 CK-MB (CK-2) < 1.0 ng/mL (0.0-4.0) 11/16/16 20:42 CK-MB (CK-2) Rel Index 1.6 (0-4) 11/16/16 20:42 Troponin T < 0.010 ng/mL (0.00-0.029) 11/16/16 20:42 Total Protein 6.5 g/dL (6.3-8.2) 11/16/16 00:12 Albumin 3.2 g/dL (3.9-5) L 11/16/16 00:12 Albumin/Globulin Ratio 1.0 % 11/16/16 00:12 Triglycerides 227 mg/dL (2-149) H 11/16/16 06:15 Cholesterol 161 mg/dL (50-199) 11/16/16 06:15 LDL Cholesterol Direct 70 mg/dL (50-130) 11/16/16 06:15 HDL Cholesterol 46 mg/dL (40-59) 11/16/16 06:15 Cholesterol/HDL Ratio 3.50 % 11/16/16 06:15 HCG, Qual Negative (Negative) 11/16/16 00:12 Urine Color Yellow (Yellow) 11/16/16 04:39 Urine Turbidity Clear (Clear) 11/16/16 04:39 Urine pH 6.0 (5.0-7.0) 11/16/16 04:39 Ur Specific [place] 1.018 (1.003-1.030) 11/16/16 04:39 Urine Protein <15 mg/dl mg/dL (Negative) 11/16/16 04:39 Urine Glucose (UA) Neg mg/dL (Negative) 11/16/16 04:39 Urine Ketones Neg mg/dL (Negative) 11/16/16 04:39 Urine Blood Neg (Negative) 11/16/16 04:39 Urine Nitrite Neg (Negative) 11/16/16 04:39 Urine Bilirubin Neg (Negative) 11/16/16 04:39 Urine Urobilinogen < 2.0 mg/dL (<2.0) 11/16/16 04:39 Ur Leukocyte Esterase Tr (Negative) 11/16/16 04:39 Urine WBC (Auto) 1.0 /HPF (0.0-6.0) 11/16/16 04:39 Urine RBC (Auto) 1.0 /HPF (0.0-6.0) 11/16/16 04:39 U Epithel Cells (Auto) 8.0 /HPF (0-13.0) 11/16/16 04:39 Urine Mucus Few /HPF 11/16/16 04:39
[2016-11-19] MEDS: BABY ASPIRIN PO SCH (10:57)
[2016-11-19] MEDS: COLACE PO SCH ×2 (10:57→21:28)
[2016-11-19] MEDS: ROCEPHIN/NS 1 GM/50 ML 1 GM/50 ML BAG IV SCH (10:58)
[2016-11-19] MEDS: PEPCID PO SCH ×2 (10:59→21:28)
[2016-11-19] MEDS: CELLCEPT PO SCH ×2 (10:59→21:28)
--- NOTE | 2016-11-19 21:15 | Event Note ---
Date: 11/19/16 31 year old female with SLE. Reviewed CT chest. Numerous lymph nodes in the axilla, and throughout the neck/supraclavicular region that are more than expected, but can be seen in autoimmune conditions. None are significantly enlarged by CT size criteria. Will bring patient down for ultrasound guided evaluation and possible biopsy tomorrow.
[2016-11-20] MEDS: MOTRIN PO PRN ×2 (00:11→13:49)
[2016-11-20] MEDS: BABY ASPIRIN PO SCH (10:15)
[2016-11-20] MEDS: ROCEPHIN/NS 1 GM/50 ML 1 GM/50 ML BAG IV SCH (11:13)
--- NOTE | 2016-11-20 12:51 | Event Note ---
Date: 11/20/16 Patients lymphadenopathy has resolved.
[2016-11-20] MEDS: CELLCEPT PO SCH (16:12)
[2016-11-20] MEDS: COLACE PO SCH (16:15)
[2016-11-20] MEDS: PEPCID PO SCH (16:16)
--- NOTE | 2016-11-20 18:07 | Progress Note ---
Assessment and Plan Patient is a 31-year-old woman with history of SLE that was diagnosed May 2016. She goes to the rheumatology clinic at [facility] (she was scheduled to go to Lupus clinic at [place]). She was allergic to plaquenil and another rheumatologic agent that she can't remember; so they put her on CellCept but she has not experienced any improvement in her symptoms or rash. Her rash, axillary and cervical lymph nodes are worsening. Her fatigue is worsening. 2 weeks ago she was at [facility] with similar complaints. She drove herself to [facility] emergency department yesterday with chest pains, counseling done and high fevers. CTA of the chest showed lymphadenopathy axillary and supraclavicular lymph nodes, cholelithiasis, no PE. Cardiac enzymes and troponin negative. -LAD ? lymphoma: Had lymph node bx, follow-up with report on outpatient basis with patient's oncologist Dr. MCARTHUR send for flow cytometry, cytology, pcr technique sequencing to r/o TB (pt not coughing at present)/infection -Cholelithiasis without acute cholecystitis reviewed abdominal ultrasound -Chest pain, atypical most likely due to lymphadenopathy ruled out ischemiam with negative Stress test negative and 11/16/2016 echocardiogram shows estimated ejection fraction is 5560 percent, trace MR, trace [place], mild [place], left atrium is mildly dilated. -SLE flare: Treat with IV steroids -Immunocompromise state on CellCept, concerning for infection with high fevers, UA negative for UTI, CT chest did not mention any pneumonia, white blood cell count normal but she is on CellCept (do not know her if she was tested for Tb at [place]), blood culture pending, worsening lymphadenopathy and high fevers may be associated with lymphoma: Consulted hematology oncology, added empiric antibiotic -DVT prophylaxis: SCDs and hold subcutaneous Lovenox for bx full code Disposition: IR for bx tomorrow then possible d/c with home steroids, needs follow up Bx with Dr. Pandey history Subjective Date of service: 11/20/16 Principal diagnosis: chest pain, SLE exacerbation, lymphoma Interval history: No new complaints. No chest pain. Had lymph node biopsy done today Objective - Constitutional Vitals: Vital Signs - 12hr 11/20/16 11/20/16 08:57 12:55 Temperature 97.8 F 97.4 F L Pulse Rate [ 70 83 Left] Respiratory 18 18 Rate Blood Pressure 125/83 124/74 [Left Arm] O2 Sat by Pulse 100 100 Oximetry General appearance: Present: no acute distress, well-nourished - EENT Eyes: PERRL, EOM intact ENT: hearing intact, clear oral mucosa - Neck Neck: supple, normal ROM - Respiratory Respiratory effort: normal Respiratory: bilateral: CTA - Cardiovascular Rhythm: regular Heart Sounds: Present: S1 & S2. Absent: gallop, rub Extremities: pulses intact, No edema, normal color, Full ROM - Gastrointestinal General gastrointestinal: Present: soft, non-tender, non-distended, normal bowel sounds - Integumentary Integumentary: clear, warm, dry - Musculoskeletal Musculoskeletal: 1, strength equal bilaterally - Neurologic Neurologic: moves all extremities - Psychiatric Psychiatric: memory intact, appropriate mood/affect, intact judgment & insight - Labs CBC & Chem 7: 11/18/16 05:36 11/18/16 07:03
[2016-11-20 18:18] VITALS: BP 137/63
--- NOTE | 2016-11-20 19:38 | Discharge Summary ---
Providers - Providers Date of Admission: 11/16/16 16:00 Date of discharge: 11/20/16 Attending physician: GABRIEL WRIGHT 11/17/16 11:08 Consult to Physician [CONS] Routine Consulting Provider: RAJ MILLARD Reason For Exam: lymphoma Place consult to:: Dr. MCARTHUR Notified:: a service Phone number called:: [phone] Was contact made?: Yes If yes, spoke with:: tsering Time called:: 11:13 11/18/16 14:03 Consult to Interventional Radiology [CONS] Routine Consulting Provider: ISABEL HERRON Reason For Exam: Lymph node bx, ?lymphoma vs SLE Place consult to:: KARLA Notified:: SERVICE Phone number called:: [phone] Was contact made?: Yes If yes, spoke with:: JUAN Time called:: 16:00 Comment:: send for flow cytology, culture, pcr r/o tb/infection Primary care physician: [employer]PERATOR HELPER Hospitalization Reason for admission: SLE exacerbation, lymphadenopathy. Condition: Stable Pertinent studies: CT scan of the chest that showed multiple air axillary and supraclavicular lymph nodes. Concern for lymphoma was raised. Had cholelithiasis without evidence of cholecystitis. Abdominal ultrasound showed cholelithiasis without evidence of cholecystitis. Echocardiogram of the heart showed normal left ventricular function, with ejection fraction of 55-60% Procedures: Ultrasound-guided biopsy of the lymph node was planned by interventional radiologist however this was counseled as lymph nodes were found to be too small for biopsy per patient, stating this was conveyed to her by the interventional radiologist Hospital course: 31-year-old -[place] female with past medical history significant for SLE presented to the emergency department complaining of mid sternal chest pain for the last 3 days. Chest pain is pressure like, 8/10, with no radiation, associated with SOB, no relieving or alleviating factors. Patient has fever for the last 3 days not relieved with Tylenol. The patient's malar flush is getting worse and complaining of sorethroat and increased in the the size of the lymphnodes. Patient has been going to the lupus clinic at [place] where she was commenced on CellCept. She was also placed on prednisone. However she had developed multiple infections including bacterial vaginosis which was placed on metronidazole. CellCept was discontinued on admission. Fever resolved. Patient stated that she was placed on CellCept because she was allergic to order lupus medication she had been placed on at [place] [facility] clinic. On admission a CT scan of the chest showed multiple supraclavicular and axillary lymph nodes, concerning for lymphoma. There was evidence of mild pulmonary hypertension as well as mild cardiomyopathy and cholelithiasis were identified. Ultrasound of the gallbladder was then. There was no evidence of acute cholecystitis. Interventional radiology consult was obtained to assist in obtaining lymph node biopsy. However on getting down to the biopsy aroma interventional radiologist of stated that lymph nodes where too small for biopsy as her course of prednisone may have shrunk on the lymph nodes. Had an extensive discussion with the patient as well as her mother and father regarding going back to the lupus clinic at [facility] for continuation of care. Disposition: DISCHARGED TO HOME OR SELFCARE Core Measure Documentation - Palliative Care Palliative Care/ Comfort Measures: Not Applicable - Core Measures Any of the following diagnoses?: none Exam - Constitutional Vitals: Temp Pulse Resp BP Pulse Ox 97.8 F 103 H 18 137/63 98 11/20/16 18:17 11/20/16 18:17 11/20/16 18:17 11/20/16 18:17 11/20/16 18:17 General appearance: Present: no acute distress, well-nourished, other ( myeloneuritis) - EENT Eyes: Present: PERRL ENT: hearing intact, clear oral mucosa - Neck Neck: Present: supple, normal ROM - Respiratory Respiratory effort: normal Respiratory: bilateral: CTA - Cardiovascular Heart Sounds: Present: S1 & S2. Absent: rub, click - Extremities Extremities: pulses symmetrical, No edema Peripheral Pulses: within normal limits - Abdominal General gastrointestinal: Present: soft, non-tender, non-distended, normal bowel sounds Female genitourinary: Present: normal - Integumentary Integumentary: Present: clear, warm, dry - Musculoskeletal Musculoskeletal: gait normal, strength equal bilaterally - Psychiatric Psychiatric: appropriate mood/affect, intact judgment & insight - Neurologic Neurologic: CNII-XII intact, moves all extremities Plan Activity: advance as tolerated Weight Bearing Status: Weight Bear as Tolerated Diet: regular Follow up with: PRIMARY CARE, [Primary Care Provider] - 3-5 Days Forms: Work/School Release Form, Work/School Excuse Out Patient Prescriptions: Famotidine [Pepcid] 20 mg PO BID #60 tablet Ibuprofen [Motrin 800 MG tab] 800 mg PO Q8HR PRN #30 tablet PRN Reason: Pain metroNIDAZOLE [Flagyl TAB] 500 mg PO Q12HR #14 tablet Prednisone [predniSONE] 20 mg PO QDAY #30 tab
--- NOTE | 2016-11-21 14:35 | Ultrasound Report ---
ULTRASOUND SOFT TISSUE HEAD AND NECK History: Axillary and neck lymphadenopathy, lymphoma. Findings: Targeted hernandez scale ultrasound was performed on the right side of the neck and bilateral axilla. 1 or 2 slightly enlarged lymph nodes in the right side of the neck is identified measuring 2.0 x 0.9 cm. This lymph node demonstrates normal architecture. There is no bulky cervical adenopathy. Views of the axilla demonstrate no evidence for adenopathy on ultrasound. Impression: No convincing adenopathy. There is a borderline to mildly enlarged lymph node in the right side of the neck with normal architecture. This may represent a reactive lymph node. Low suspicion for lymphoma.
--- NOTE | 2016-11-22 00:21 | Treadmill Report ---
INDICATION: Chest pain. ORDERING PHYSICIAN: Dr. Romero. FINDINGS: This is a poor quality myocardial perfusion scan limited by an inferior wall shadowing due to the uptake noted in the adjacent bowels. There is, however, no scintigraphic evidence of myocardial ischemia. There is evidence of decreased uptake noted in the apical wall on the stress images likely due to apical thinning. Gated wall imaging reveals normal wall motion and wall thickening with an ejection fraction measured at 80%. CONCLUSION: 1. Poor quality myocardial perfusion scan inferior wall attenuation due to increased uptake in the adjacent bowel loops. 2. No scintigraphic evidence of myocardial ischemia. 3. Normal left ventricular size and systolic function. 4. This is a low risk myocardial perfusion study associated with a one year cardiovascular mortality of less than 1%. [facility]# [id number] HARRY/YOHAN
== END 2016-11-20 21:10 | disposition home or self-care (01) | DRG 815 ==
LOC: ED 23:37 → 3A 11-16 16:00 → 4A 11-16 17:12
PROVIDERS: ADMIT Internal Medicine; ATTEND Family Medicine
PROC: 4A02XM4 Measurement of Cardiac Total Activity, External Approach (ICD-10-PCS; principal; 2016-11-16)
DX: R59.1 Generalized enlarged lymph nodes (principal); K80.20 Calculus of gallbladder without cholecystitis without obstruction; N39.0 Urinary tract infection, site not specified; I42.9 Cardiomyopathy, unspecified; R07.89 Other chest pain; M32.9 Systemic lupus erythematosus, unspecified; I27.2 Other secondary pulmonary hypertension; Z88.6 Allergy status to analgesic agent; Z88.8 Allergy status to other drugs, medicaments and biological substances
CPT/HCPCS: 36415; 71010; 71275; 76536; 76700; 78452; 80048; 80053; 80061; 81001; 82140; 82550; 82553; 82805; 82962; 84484; 84703; 85025; 85027; 85379; 85610; 85730; 87040; 87086; 93005; 93010; 93017; 93306; 96360; 96361; A9502; J0696; J1650; J2270; J2785; J2920; J7030; J7517; Q9967

== ENCOUNTER 2016-11-26 13:50 | Inpatient (IN) | payer SELFPAY ==
[2016-11-26] MEDS ORDERED: TYLENOL PO ONE (14:49)
[2016-11-26] MEDS ORDERED: TYLENOL ONE (14:50)
[2016-11-26 15:08] LABS: Basophils % (Auto) 0.3 % (0.0-1.8); Hematocrit 36.4 % (30.3-42.9); Hemoglobin 11.8 gm/dl (10.1-14.3); Mean Corpuscular HGB Conc 33 % (30-34); Mean Corpuscular Hemoglobin 27 pg (28-32); Mean Corpuscular Volume 84 fl (79-97); Platelet Count 273 K/mm3 (140-440); Red Blood Count 4.34 M/mm3 (3.65-5.03); Red Cell Distribution Width 12.8 % (13.2-15.2); White Blood Count 5.5 K/mm3 (4.5-11.0)
[2016-11-26 15:18] LABS: INR 0.77 (0.87-1.13)
[2016-11-26 15:36] LABS: Alanine Aminotransferase 66 units/L (7-56); Albumin 3.5 g/dL (3.9-5); Albumin/Globulin Ratio 1.1 %; Alkaline Phosphatase 127 units/L (35-129); Anion Gap 21 mmol/L; Blood Urea Nitrogen 14 mg/dL (7-17); Calcium 8.2 mg/dL (8.4-10.2); Carbon Dioxide 21 mmol/L (22-30); Chloride 96.4 mmol/L (98-107); Glucose 111 mg/dL (65-100); Sodium 134 mmol/L (137-145); Total Protein 6.7 g/dL (6.3-8.2)
--- NOTE | 2016-11-26 15:59 | XRay Report ---
PORTABLE CHEST INDICATION: Possible sepsis, fever. COMPARISON: 11/16/2016 FINDINGS: Portable, frontal chest radiograph again demonstrates borderline cardiomegaly. Clear lungs. Intact bones. CONCLUSION: Stable borderline cardiomegaly. Please correlate. Thank you for the opportunity to participate in this patient's care.
--- NOTE | 2016-11-26 16:46 | Emergency Department Report ---
ED Fever HPI - General Chief Complaint: Fever Stated Complaint: Lupus Time Seen by Provider: 11/26/16 16:41 ED Review of Systems ROS: Stated complaint: Lupus Other details as noted in HPI Constitutional: denies: chills, fever Eyes: denies: eye pain, eye discharge, vision change ENT: denies: ear pain, throat pain Respiratory: cough, shortness of breath, SOB with exertion, SOB at rest. denies : wheezing Cardiovascular: denies: chest pain, palpitations, orthopnea Endocrine: no symptoms reported Gastrointestinal: abdominal pain. denies: nausea, vomiting, diarrhea, constipation, hematemesis, melena, hematochezia Genitourinary: denies: urgency, dysuria, discharge Musculoskeletal: arthralgia. denies: back pain, joint swelling Skin: rash, lesions Neurological: denies: headache, weakness, numbness, paresthesias, confusion, abnormal gait, vertigo Psychiatric: denies: anxiety, depression Hematological/Lymphatic: denies: easy bleeding, easy bruising ED Past Medical Hx - Past Medical History Additional medical history: bronchitis,Lupus - Surgical History Additional Surgical History: 2 c-sections - Social History Smoking Status: Never Smoker Substance Use Type: None - Medications Home Medications: Home Medications Medication Instructions Recorded Confirmed Last Taken Type Prednisone 10 mg PO QAM 11/16/16 11/16/16 11/15/16 History Aspirin [Aspirin BABY CHEW TAB] 81 mg PO QDAY tab.chew 11/20/16 Unknown Rx Famotidine [Pepcid] 20 mg PO BID tablet 11/20/16 Unknown Rx Famotidine [Pepcid] 20 mg PO BID #60 tablet 11/20/16 Unknown Rx Ibuprofen [Motrin 800 MG tab] 800 mg PO Q8HR PRN #30 tablet 11/20/16 Unknown Rx Prednisone [predniSONE] 20 mg PO QDAY #30 tab 11/20/16 Unknown Rx metroNIDAZOLE [Flagyl TAB] 500 mg PO Q12HR #14 tablet 11/20/16 Unknown Rx ED Physical Exam - General Limitations: No Limitations General appearance: alert, in no apparent distress - Head Head exam: Present: atraumatic, normocephalic - Eye Eye exam: Present: normal appearance, PERRL, EOMI Pupils: Present: normal accommodation - ENT ENT exam: Present: mucous membranes moist - Neck Neck exam: Present: normal inspection - Respiratory Respiratory exam: Present: normal lung sounds bilaterally. Absent: respiratory distress, wheezes, rales, rhonchi, stridor - Cardiovascular Cardiovascular Exam: Present: tachycardia. Absent: systolic murmur, diastolic murmur, rubs, gallop - GI/Abdominal GI/Abdominal exam: Present: soft, tenderness (mild right upper quadrant tenderness), normal bowel sounds - Extremities Exam Extremities exam: Present: normal inspection - Back Exam Back exam: Present: normal inspection - Neurological Exam Neurological exam: Present: alert, oriented X3, CN II-XII intact - Psychiatric Psychiatric exam: Present: normal affect, normal mood - Skin Skin exam: Present: warm, dry, intact, erythema, other (severe discoid lupus irruption, with these quantitation of lips and face. No lesions on oral mucosa. No swelling of lips tongue or throat.). Absent: rash ED Course Vital Signs 11/26/16 11/26/16 11/26/16 14:42 14:50 16:50 Temperature 103.2 F H 100.8 F H Pulse Rate 125 H 125 H Respiratory 20 18 18 Rate Blood Pressure 120/82 Blood Pressure 129/78 [Left] O2 Sat by Pulse 95 97 Oximetry 11/26/16 17:45 Temperature Pulse Rate Respiratory 18 Rate Blood Pressure Blood Pressure [Left] O2 Sat by Pulse Oximetry ED Medical Decision Making - Lab Data Result diagrams: 11/26/16 14:50 11/26/16 14:50 Critical care attestation.: If time is entered above; I have spent that time in minutes in the direct care of this critically ill patient, excluding procedure time. ED Disposition Condition: Stable Referrals: PRIMARY CARE, [Primary Care Provider] - 3-5 Days
[2016-11-26] MEDS ORDERED: NACL 0.9% 500 ML 500 ML IV ONE (16:55)
[2016-11-26] MEDS ORDERED: MORPHINE IV ONE (17:04)
--- NOTE | 2016-11-26 18:19 | Ultrasound Report ---
FINAL REPORT EXAM: US ABDOMEN LIMITED HISTORY: RUQ pain . Patient was given pain medication. TECHNIQUE: Right upper quadrant ultrasound PRIORS: Ultrasound abdomen 11/18/2016 FINDINGS: Examination of the gallbladder demonstrates multiple gallstones again noted. There is no evidence for distention, wall thickening, or pericholecystic fluid. No sonographic Penaloza's sign is elicited (patient was given pain medication). Common bile duct is normal in diameter measuring 3.7 mm. The liver is normal and homogeneous in echogenicity without focal abnormality or intrahepatic biliary dilatation. There is a well-defined ovoid hypoechoic area located between the left lobe of the liver and the pancreas measuring 2.6 x 1.0 x 2.9 cm. This is unchanged from previous and likely represents an enlarged lymph node. The visualized portions of the pancreas are normal in thickness without focal abnormality or pancreatic duct dilatation. The right kidney is normal in size without calculi or hydronephrosis. Right kidney measures 10.4 cm in length, unchanged. IMPRESSION: Stable right upper quadrant ultrasound. Cholelithiasis again noted. Hypoechoic focus located between the left lobe of the liver and the pancreas is unchanged, likely an enlarged lymph node.
--- NOTE | 2016-11-26 18:44 | Emergency Department Report ---
ED Fever HPI - General Chief Complaint: Fever Stated Complaint: Lupus Time Seen by Provider: 11/26/16 16:41 Source: patient, family - History of Present Illness Initial Comments: Complaining of severe lupus flare, fever, polyarthralgia, abdominal pain, and weakness and dizziness. Timing/Duration: changing over time, other (started 3 days ago) Fever Severity/Quality: greater than 102 F Fever Therapy RN RADIATION: Tylenol Associated Symptoms: abdominal pain, cough, headache, muscle aches, nausea/ vomiting, rash, shortness of breath, stiff neck, weakness ED Review of Systems ROS: Stated complaint: Lupus Other details as noted in HPI Constitutional: chills, fever, malaise, weakness Eyes: denies: eye pain, eye discharge, vision change ENT: denies: ear pain, throat pain Respiratory: cough, shortness of breath, SOB with exertion, SOB at rest. denies : orthopnea, wheezing Cardiovascular: dyspnea on exertion. denies: chest pain, palpitations, orthopnea Endocrine: no symptoms reported Gastrointestinal: denies: abdominal pain, nausea, diarrhea Genitourinary: denies: urgency, dysuria, discharge Musculoskeletal: denies: back pain, joint swelling, arthralgia Skin: rash, lesions Neurological: headache. denies: weakness, numbness, paresthesias, confusion, abnormal gait, vertigo Psychiatric: denies: anxiety, depression Hematological/Lymphatic: denies: easy bleeding, easy bruising ED Past Medical Hx - Past Medical History Additional medical history: bronchitis,Lupus - Surgical History Additional Surgical History: 2 c-sections - Social History Smoking Status: Never Smoker Substance Use Type: None - Medications Home Medications: Home Medications Medication Instructions Recorded Confirmed Last Taken Type Prednisone 10 mg PO QAM 11/16/16 11/16/16 11/15/16 History Aspirin [Aspirin BABY CHEW TAB] 81 mg PO QDAY tab.chew 11/20/16 Unknown Rx Famotidine [Pepcid] 20 mg PO BID tablet 11/20/16 Unknown Rx Famotidine [Pepcid] 20 mg PO BID #60 tablet 11/20/16 Unknown Rx Ibuprofen [Motrin 800 MG tab] 800 mg PO Q8HR PRN #30 tablet 11/20/16 Unknown Rx Prednisone [predniSONE] 20 mg PO QDAY #30 tab 11/20/16 Unknown Rx metroNIDAZOLE [Flagyl TAB] 500 mg PO Q12HR #14 tablet 11/20/16 Unknown Rx ED Physical Exam - General Limitations: No Limitations General appearance: alert, in no apparent distress - Head Head exam: Present: atraumatic, normocephalic - Eye Eye exam: Present: normal appearance, PERRL, EOMI Pupils: Present: normal accommodation - ENT ENT exam: Present: mucous membranes moist, other (his quantitation of lips and malar rash) - Neck Neck exam: Present: normal inspection, full ROM. Absent: meningismus - Respiratory Respiratory exam: Present: normal lung sounds bilaterally. Absent: respiratory distress, wheezes, rales, rhonchi, stridor - Cardiovascular Cardiovascular Exam: Present: tachycardia. Absent: systolic murmur, diastolic murmur, rubs, gallop - GI/Abdominal GI/Abdominal exam: Present: soft, tenderness (mild right upper quadrant tenderness), normal bowel sounds - Extremities Exam Extremities exam: Present: normal inspection, normal capillary refill - Back Exam Back exam: Present: normal inspection - Neurological Exam Neurological exam: Present: alert, oriented X3, CN II-XII intact - Psychiatric Psychiatric exam: Present: normal affect, normal mood - Skin Skin exam: Present: warm, dry, other (severe discoid lupus with facial desuamation. no angioedema noted. oral mucous without lesions.). Absent: rash ED Course Vital Signs 11/26/16 11/26/16 11/26/16 14:42 14:50 16:50 Temperature 103.2 F H 100.8 F H Pulse Rate 125 H 125 H Respiratory 20 18 18 Rate Blood Pressure 120/82 Blood Pressure 129/78 [Left] O2 Sat by Pulse 95 97 Oximetry 11/26/16 17:45 Temperature Pulse Rate Respiratory 18 Rate Blood Pressure Blood Pressure [Left] O2 Sat by Pulse Oximetry - Reevaluation(s) Reevaluation #1: 11/26/16 18:51 A short temp decreasing, heart rate 1:15, patient resting comfortably. Patient just admitted to and is in room now patient. ED Medical Decision Making - Lab Data Result diagrams: 11/26/16 14:50 11/26/16 14:50 Critical care attestation.: If time is entered above; I have spent that time in minutes in the direct care of this critically ill patient, excluding procedure time. ED Disposition Clinical Impression: SLE (systemic lupus erythematosus related syndrome), Lupus Disposition: OP ADMITTED IP TO THIS HOSP Is pt being admited?: Yes Condition: Stable Referrals: PRIMARY CARE,MD [Primary Care Provider] - 3-5 Days
--- NOTE | 2016-11-26 19:10 | Admit Criteria Form ---
Admission Criteria Documentation: FEVER Clinical Indications for Inpatient Care (Place 'X' for any and all applicable criteria): Ongoing inpatient care may be indicated for fever with ANY ONE of the following[ D] (5)(27)(28)(29)(30)(31): [ ]I. Bacteremia [X ]II. Evidence of significant systemic illness as indicated by ANY ONE of the following: [ X]a) Persistently high temperatures greater than 103.1 degrees F (39.5 degrees C) (oral) [ ]b) New-onset hypoxia [ ]c) Hemodynamic instability [ ]d) Mental status changes [ ]e) Decreased urine output due to developing renal insufficiency [ ]f) New focal neurologic deficit (eg, stroke) [ ]g) Seizures [ ]h) Rigors [ ]i) Dehydration or hypovolemia [ ]j) Inadequate oral intake [ ]III. Patient in the immediate postoperative period with ANY ONE of the following (E)(23)(24): [ ]a) Evidence of specific localizing infection requiring ongoing inpatient evaluation or treatment (eg,abscess, severe pneumonia, wound infection ) [ ]b) Known or suspected cause of fever requiring ongoing inpatient evaluation or treatment (eg, DVT) [ ]c) Evidence of malignant hyperthermia (eg, unexplained tachycardia and muscle rigidity after depolarizing muscular blocking agent or inhaled anesthetic agent) [ ]IV. Suspected cause requiring acute care (eg, endocarditis, meningitis) [ ]V. High suspicion of bacteremia as indicated by severe constitutional symptoms in patient at high risk as indicated by ANY ONE of the following: [ ]a) Immunocompromised state [D](22) [ ]b) Age <3 years or >65 years [ ]c) Severe comorbidities (eg, poorly controlled diabetes, severe COPD) [ ]. High suspicion for fungal infection as indicated by ANY ONE of the following (22)(25): [ ]a) Febrile neutropenia (WBC <500/mm3 (0.5 X 109/L)) for >4 days despite broad spectrum antibiotics [ ]b) Imaging findings suggestive of fungal infection [ ]c) Immunocompromised state [ ]d) Immunocompromised patient colonized with Aspergillus species [ ]VII. Evidence of infection of medical devices such as implanted catheters or exposed hardware [ ]VIII. Suspected neuroleptic malignant syndrome as evidenced by ALL of the following (15): [ ]a) Recent use of neuroleptic medication (eg, haloperidol, prochlorperazine, metoclopramide) [ ]b) New-onset muscle rigidity Extended stay beyond goal length of stay for primary condition may be needed until ALL of the following are present(16)(17)(18)(19)(20)(21): [ ]a) Temperature status acceptable as indicated by ANY ONE of the following: [ ]i) Temp <38.1C (100.5 F) (oral) [ ]ii) Temp as expected for disease process and care performable at next level of care [ ]b) Hemodynamic stability [ ]c) Cultures negative or infection identified and under adequate treatment [ ]d) Behavior or mental status abnormalities absent or manageable at lower level of care (Also use Mental Status Change Criteria Form) for further information. [ ]e) Medical comorbidities absent or manageable at a lower level of care The original [facility] [employer] content created by [facility] has been revised. The portions of the content which have been revised are identified through the use of italic text or in bold, and [facility] has neither reviewed nor approved the modified material. All other unmodified content is copyright [facility]. Please see references footnoted in the original [facility] edition 2016 Admission Criteria Met: Yes
[2016-11-26] MEDS ORDERED: MOTRIN PO ONE (19:25)
--- NOTE | 2016-11-26 23:55 | Event Note ---
Date: 11/26/16 See H/p in reports SLE Flare
[2016-11-27] MEDS: PEPCID PO SCH ×3 (04:26→21:54)
--- NOTE | 2016-11-27 05:20 | History and Physical Report ---
CHIEF COMPLAINT: Severe redness and skin swelling of all the face and the chest and left shoulder for 1 week. HISTORY OF PRESENT ILLNESS: A 31-year-old with SLE, not on Plaquenil because of reaction, comes in for severe facial swelling along with the skin swelling, maculopapular rash, and also on the chest, maculopapular rash, and on the left shoulder. Feeling weak. ____ having low-grade fever to moderate fever. PAST MEDICAL HISTORY: Significant for lupus and bronchitis. PAST SURGICAL HISTORY: Two C-sections. SOCIAL HISTORY: Does not smoke. No alcohol. No recreational drugs. CURRENT MEDICATIONS: Famotidine 25 mg twice a day, ibuprofen 800 mg q.8h., prednisone 20 mg p.o. daily, aspirin 81 mg daily, Flagyl 500 mg q.12h., 14 tablets. REVIEW OF SYSTEMS: CONSTITUTIONAL: Has fever. No chills. No weight loss. No weight gain. HEENT: No sore throat. No postnasal drip. CARDIOVASCULAR SYSTEM AND RESPIRATORY SYSTEM: No shortness of breath. No chest pain. No wheezing. No diaphoresis. No palpitations. GASTROINTESTINAL: No nausea, no vomiting, no diarrhea. GENITOURINARY: No dysuria. No flank pain. MUSCULOSKELETAL SYSTEM: Has joint pains and muscle pains. SKIN: Rashes all over. Maculopapular rash over trunk, over front of the chest and also face and left side shoulder. CENTRAL NERVOUS SYSTEM: No complaints. No syncope, no seizures. A 14-point review of systems is done. PHYSICAL EXAMINATION: GENERAL: Young female, lying in bed ____. VITAL SIGNS: Blood pressure 120/82, temperature 103.2, pulse is 125, respirations are 20. HEENT: Unremarkable. Facial skin swelling present. Maculopapular rash all over the cheeks and the chin and the nose and the forehead. NECK: Supple. No lymphadenopathy. No thyromegaly. LUNGS: Clear to auscultation and percussion. Good air entry. CARDIOVASCULAR SYSTEM: S1, S2 heard. No gallop. No murmur. No rub. Apical impulse in the left fifth intercostal space in midclavicular line. ABDOMEN: Soft and benign. No hepatosplenomegaly. No guarding. No rigidity. Hernial orifices are normal. EXTREMITIES: Good pedal pulses. No pedal edema. CENTRAL NERVOUS SYSTEM: Alert and oriented x 4. Nonfocal exam. SKIN: Severe maculopapular rash on the face and on the front of the chest and on the left shoulder, discrete papules, erythematous. JOINT SYSTEM: Normal. CENTRAL NERVOUS SYSTEM: Alert and oriented x4. Nonfocal exam. LABORATORY DATA: Significant for white count of 5500; H and H 11.8 and 36.4; platelet count is 273,000. Protime is 10.6, INR is 0.77. C-reactive protein is 10.5, which is high. BUN and creatinine is 14 and 1.0. Sodium is 134, potassium is 4.0, chloride is 96.4. Albumin is 3.5, slightly low. ASSESSMENT AND PLAN: 1. Systemic lupus erythematosus flare up. We will treat aggressively. Solu-Medrol 125 mg q.8h., may be increased to q.6h. if necessary. The patient is not on Plaquenil because of reaction to Plaquenil. The patient is on chronic prednisone 20 mg daily. 2. Gastroesophageal reflux disease. Continue famotidine. 3. Arthritis. Continue prednisone. 4. Deep vein thrombosis prophylaxis. Lovenox 40 mg subcutaneous daily. JOB# [id number] VSSri/NTS
[2016-11-27] MEDS: MOTRIN PO PRN ×2 (05:56→16:35)
--- NOTE | 2016-11-27 07:25 | Progress Note ---
Assessment and Plan Assessment and plan: 31-year-old woman with past medical history of SLE, has allergic reaction to Plaquenil. He presents with rash and swelling of his face chest and left shoulder. 1. SLE flare Continue steroids Infection workup so far negative, negative chest x-ray, will obtain UA today 2. GERD Continue famotidine 3. DVT prophylaxis, continue Lovenox Patient is uninsured and has had trouble getting continued follow-up for treatment of SLE, she has had a reaction to Plaquenil, was recently taken off CellCept, she needs proper outpatient follow-up with her fish cutter. Case management consulted to aid her with applications for health insurance. History Interval history: Yuliana is complaining of pain in all her joints, pain is 4 out of 10, dull, she also complaining of discoid rash which is painful especially on her trunk, complaining of hair loss, Hospitalist Physical - Physical exam Narrative exam: General: Patient appears well in no distress HEENT: MMM, EOMI cardiac: S1-S2 heard lungs: clear to auscultation, abdomen: soft, nontender, nondistended bowel sounds positive extremities: no edema clubbing or cyanosis Skin: Discoid rash, with chronic skin changes on both upper extremities and on her neck, however on her chest and shrunk she has an erythematous raised rash Alopecia noted with inflammatory changes to her scalp Neuro: no focal deficit Psych: appropriate behavior and mood, cognition intact - Constitutional Vitals: Temp Pulse Resp BP Pulse Ox 100.7 F H 118 H 18 115/65 98 11/27/16 00:00 11/27/16 00:00 11/27/16 05:56 11/27/16 00:00 11/27/16 00:00 Results - Labs CBC & Chem 7: 11/26/16 14:50 11/26/16 14:50 Labs: Laboratory Last Values WBC 5.5 K/mm3 (4.5-11.0) 11/26/16 14:50 RBC 4.34 M/mm3 (3.65-5.03) 11/26/16 14:50 Hgb 11.8 gm/dl (10.1-14.3) 11/26/16 14:50 Hct 36.4 % (30.3-42.9) 11/26/16 14:50 MCV 84 fl (79-97) 11/26/16 14:50 MCH 27 pg (28-32) L 11/26/16 14:50 MCHC 33 % (30-34) 11/26/16 14:50 RDW 12.8 % (13.2-15.2) L 11/26/16 14:50 Plt Count 273 K/mm3 (140-440) 11/26/16 14:50 Lymph % (Auto) 21.2 % (13.4-35.0) 11/26/16 14:50 [place] % (Auto) 3.1 % (0.0-7.3) 11/26/16 14:50 Eos % (Auto) 0.0 % (0.0-4.3) 11/26/16 14:50 Baso % (Auto) 0.3 % (0.0-1.8) 11/26/16 14:50 Lymph # 1.2 K/mm3 (1.2-5.4) 11/26/16 14:50 [place] # 0.2 K/mm3 (0.0-0.8) 11/26/16 14:50 Eos # 0.0 K/mm3 (0.0-0.4) 11/26/16 14:50 Baso # 0.0 K/mm3 (0.0-0.1) 11/26/16 14:50 Seg Neutrophils % 75.4 % (40.0-70.0) H 11/26/16 14:50 Seg Neutrophils # 4.1 K/mm3 (1.8-7.7) 11/26/16 14:50 ESR 76 mm/Hr (0-20) 11/26/16 18:58 PT 10.6 Sec. (12.2-14.9) L 11/26/16 14:50 INR 0.77 (0.87-1.13) L 11/26/16 14:50 VBG pH 7.416 (7.320-7.420) 11/26/16 14:50 Sodium 134 mmol/L (137-145) L 11/26/16 14:50 Potassium 4.0 mmol/L (3.6-5.0) 11/26/16 14:50 Chloride 96.4 mmol/L (98-107) L 11/26/16 14:50 Carbon Dioxide 21 mmol/L (22-30) L 11/26/16 14:50 Anion Gap 21 mmol/L 11/26/16 14:50 BUN 14 mg/dL (7-17) 11/26/16 14:50 Creatinine 1.0 mg/dL (0.7-1.2) 11/26/16 14:50 Estimated GFR > 60 ml/min 11/26/16 14:50 BUN/Creatinine Ratio 14.00 % 11/26/16 14:50 Glucose 111 mg/dL (65-100) H 11/26/16 14:50 Lactic Acid 1.30 mmol/L (0.7-2.0) 11/26/16 17:00 Calcium 8.2 mg/dL (8.4-10.2) L 11/26/16 14:50 Total Bilirubin 0.40 mg/dL (0.1-1.2) 11/26/16 14:50 AST 107 units/L (5-40) H 11/26/16 14:50 ALT 66 units/L (7-56) H 11/26/16 14:50 Alkaline Phosphatase 127 units/L (35-129) 11/26/16 14:50 C-Reactive Protein 10.50 mg/dL (0.00-1.30) H 11/26/16 18:58 Total Protein 6.7 g/dL (6.3-8.2) 11/26/16 14:50 Albumin 3.5 g/dL (3.9-5) L 11/26/16 14:50 Albumin/Globulin Ratio 1.1 % 11/26/16 14:50
[2016-11-27] MEDS ORDERED: WATER FOR INJ (PF) 10 ML ONE ×2 (09:24→18:20)
[2016-11-27] MEDS ORDERED: DELTASONE PO SCH (10:00)
[2016-11-27] MEDS ORDERED: FLAGYL PO SCH (10:00)
[2016-11-27] MEDS ORDERED: MORPHINE IV PRN (12:53)
[2016-11-27 14:46] LABS: Bilirubin,Urine NEG (Negative); Blood,Urine MOD (Negative); Ketones,Urine 20 mg/dL (Negative); Leukocyte Esterase,Urine NEG (Negative); Mucus,Urine 2+ /HPF; Nitrite,Urine NEG (Negative); Urobilinogen,Urine < 2.0 mg/dL (<2.0)
[2016-11-28] MEDS: PEPCID PO SCH ×2 (09:43→22:22)
[2016-11-28] MEDS: MOTRIN PO PRN (09:48)
--- NOTE | 2016-11-28 10:50 | Progress Note ---
Assessment and Plan Assessment and plan: 31-year-old woman with past medical history of SLE, has allergic reaction to Plaquenil. He presents with rash and swelling of his face chest and left shoulder. 1. SLE flare Continue steroids Infection workup so far negative, negative chest x-ray, will obtain UA today 2. GERD Continue famotidine 3. Fever infection workup is negative, continue rx for SLE flare DVT prophylaxis, continue Lovenox Patient is uninsured and has had trouble getting continued follow-up for treatment of SLE, she has had a reaction to Plaquenil, was recently taken off CellCept, she needs proper outpatient follow-up with her supply chain procurement manager. Case management consulted to aid her with applications for health insurance. History Interval history: Yuliana is complaining of pain in all her joints, pain is 4 out of 10, dull, she also complaining of discoid rash which is painful especially on her trunk, complaining of hair loss, Hospitalist Physical - Physical exam Narrative exam: General: Patient appears well in no distress HEENT: MMM, EOMI cardiac: S1-S2 heard lungs: clear to auscultation, abdomen: soft, nontender, nondistended bowel sounds positive extremities: no edema clubbing or cyanosis Skin: Discoid rash, with chronic skin changes on both upper extremities and on her neck, however on her chest and trunk she has an erythematous raised rash Alopecia noted with inflammatory changes to her scalp Neuro: no focal deficit Psych: appropriate behavior and mood, cognition intact - Constitutional Vitals: Temp Pulse Resp BP Pulse Ox 97.8 F 86 18 127/67 98 11/28/16 08:21 11/28/16 08:21 11/28/16 08:21 11/28/16 08:21 11/28/16 08:21 Results - Labs CBC & Chem 7: 11/26/16 14:50 11/26/16 14:50 Labs: Laboratory Last Values WBC 5.5 K/mm3 (4.5-11.0) 11/26/16 14:50 RBC 4.34 M/mm3 (3.65-5.03) 11/26/16 14:50 Hgb 11.8 gm/dl (10.1-14.3) 11/26/16 14:50 Hct 36.4 % (30.3-42.9) 11/26/16 14:50 MCV 84 fl (79-97) 11/26/16 14:50 MCH 27 pg (28-32) L 11/26/16 14:50 MCHC 33 % (30-34) 11/26/16 14:50 RDW 12.8 % (13.2-15.2) L 11/26/16 14:50 Plt Count 273 K/mm3 (140-440) 11/26/16 14:50 Lymph % (Auto) 21.2 % (13.4-35.0) 11/26/16 14:50 [place] % (Auto) 3.1 % (0.0-7.3) 11/26/16 14:50 Eos % (Auto) 0.0 % (0.0-4.3) 11/26/16 14:50 Baso % (Auto) 0.3 % (0.0-1.8) 11/26/16 14:50 Lymph # 1.2 K/mm3 (1.2-5.4) 11/26/16 14:50 [place] # 0.2 K/mm3 (0.0-0.8) 11/26/16 14:50 Eos # 0.0 K/mm3 (0.0-0.4) 11/26/16 14:50 Baso # 0.0 K/mm3 (0.0-0.1) 11/26/16 14:50 Seg Neutrophils % 75.4 % (40.0-70.0) H 11/26/16 14:50 Seg Neutrophils # 4.1 K/mm3 (1.8-7.7) 11/26/16 14:50 ESR 76 mm/Hr (0-20) 11/26/16 18:58 PT 10.6 Sec. (12.2-14.9) L 11/26/16 14:50 INR 0.77 (0.87-1.13) L 11/26/16 14:50 VBG pH 7.416 (7.320-7.420) 11/26/16 14:50 Sodium 134 mmol/L (137-145) L 11/26/16 14:50 Potassium 4.0 mmol/L (3.6-5.0) 11/26/16 14:50 Chloride 96.4 mmol/L (98-107) L 11/26/16 14:50 Carbon Dioxide 21 mmol/L (22-30) L 11/26/16 14:50 Anion Gap 21 mmol/L 11/26/16 14:50 BUN 14 mg/dL (7-17) 11/26/16 14:50 Creatinine 1.0 mg/dL (0.7-1.2) 11/26/16 14:50 Estimated GFR > 60 ml/min 11/26/16 14:50 BUN/Creatinine Ratio 14.00 % 11/26/16 14:50 Glucose 111 mg/dL (65-100) H 11/26/16 14:50 Lactic Acid 1.30 mmol/L (0.7-2.0) 11/26/16 17:00 Calcium 8.2 mg/dL (8.4-10.2) L 11/26/16 14:50 Total Bilirubin 0.40 mg/dL (0.1-1.2) 11/26/16 14:50 AST 107 units/L (5-40) H 11/26/16 14:50 ALT 66 units/L (7-56) H 11/26/16 14:50 Alkaline Phosphatase 127 units/L (35-129) 11/26/16 14:50 C-Reactive Protein 10.50 mg/dL (0.00-1.30) H 11/26/16 18:58 Total Protein 6.7 g/dL (6.3-8.2) 11/26/16 14:50 Albumin 3.5 g/dL (3.9-5) L 11/26/16 14:50 Albumin/Globulin Ratio 1.1 % 11/26/16 14:50 Urine Color Yellow (Yellow) 11/27/16 14:00 Urine Turbidity Clear (Clear) 11/27/16 14:00 Urine pH 5.0 (5.0-7.0) 11/27/16 14:00 Ur Specific [place] 1.020 (1.003-1.030) 11/27/16 14:00 Urine Protein 30 mg/dl mg/dL (Negative) 11/27/16 14:00 Urine Glucose (UA) Neg mg/dL (Negative) 11/27/16 14:00 Urine Ketones 20 mg/dL (Negative) 11/27/16 14:00 Urine Blood Mod (Negative) 11/27/16 14:00 Urine Nitrite Neg (Negative) 11/27/16 14:00 Ur Reducing Substances Not Reportable 11/27/16 14:00 Urine Bilirubin Neg (Negative) 11/27/16 14:00 Urine Ictotest Not Reportable 11/27/16 14:00 Urine Urobilinogen < 2.0 mg/dL (<2.0) 11/27/16 14:00 Ur Leukocyte Esterase Neg (Negative) 11/27/16 14:00 Urine WBC (Auto) 3.0 /HPF (0.0-6.0) 11/27/16 14:00 Urine RBC (Auto) 1.0 /HPF (0.0-6.0) 11/27/16 14:00 U Epithel Cells (Auto) < 1.0 /HPF (0-13.0) 11/27/16 14:00 Urine Mucus 2+ /HPF 11/27/16 14:00 Urine HCG, Qual Negative (Negative) 11/27/16 14:00
[2016-11-29] MEDS: PEPCID PO SCH (08:16)
--- NOTE | 2016-11-29 09:41 | Discharge Summary ---
Providers - Providers Date of Admission: 11/26/16 18:48 Attending physician: EDY DE JESUS MD Primary care physician: CARPENTRY INSTRUCTOR Hospitalization Condition: Stable Hospital course: 31-year-old woman with past medical history of SLE, has allergic reaction to Plaquenil. He presents with rash and swelling of his face chest and left shoulder, and pain all over her joints. She was admitted with fevers and acute flare of SLE, she was rx with steroids after which she clinically improved. Infection workup was negative, negative chest x-ray, will obtain UA today. She clinically improved and fevers resolved, she is being dc on a steroid taper and is advised to fup in Rheumatology clinic at [place]. Discharge diagnoses Acute flare of SLE Acute flare of discoid lupus Fever GERD Disposition: DC-01 TO HOME OR SELFCARE Time spent for discharge: 35 minutes Core Measure Documentation - Palliative Care Palliative Care/ Comfort Measures: Not Applicable - Core Measures Any of the following diagnoses?: none Exam - Physical Exam Narrative exam: General: Patient appears well in no distress HEENT: MMM, EOMI cardiac: S1-S2 heard lungs: clear to auscultation, abdomen: soft, nontender, nondistended bowel sounds positive extremities: no edema clubbing or cyanosis Skin: Discoid rash, with chronic skin changes on both upper extremities and on her neck, however on her chest and shrunk she has an erythematous raised rash Alopecia noted with inflammatory changes to her scalp Neuro: no focal deficit Psych: appropriate behavior and mood, cognition intact - Constitutional Vitals: Temp Pulse Resp BP Pulse Ox 98.8 F 88 18 112/70 98 11/29/16 00:00 11/29/16 00:00 11/29/16 00:00 11/29/16 00:00 11/29/16 00:00 Plan Follow up with: PRIMARY CARE, [Primary Care Provider] - 3-5 Days Prescriptions: Prednisone [predniSONE 10 mg (6-Day Pack, 21 Tabs)] 10 mg PO .TAPER #1 tab.ds.pk
[2016-11-29 09:53] VITALS: BP 120/64
== END 2016-11-29 14:30 | disposition home or self-care (01) | DRG 547 ==
LOC: ED 13:50 → 3A 18:48
PROVIDERS: ADMIT Internal Medicine; ATTEND Internal Medicine
DX: M32.9 Systemic lupus erythematosus, unspecified (principal); R22.2 Localized swelling, mass and lump, trunk; T37.8X5A Adverse effect of other specified systemic anti-infectives and antiparasitics, initial encounter; R50.9 Fever, unspecified; K21.9 Gastro-esophageal reflux disease without esophagitis; M19.90 Unspecified osteoarthritis, unspecified site; Z98.891 History of uterine scar from previous surgery; Z88.6 Allergy status to analgesic agent; Z88.8 Allergy status to other drugs, medicaments and biological substances; Y92.89 Other specified places as the place of occurrence of the external cause; Z79.82 Long term (current) use of aspirin
CPT/HCPCS: 36415; 71010; 76705; 80053; 81001; 81025; 82140; 82805; 85025; 85610; 85652; 86140; 87040; 96361; 96374; 99285; J2270; J2930; J7040

== ENCOUNTER 2017-06-28 08:03 | Inpatient (IN) | payer MEDICAID ==
--- NOTE | 2017-06-28 09:20 | XRay Report ---
Single view chest: Compared to 11/26/16. History: Shortness of breath. Findings: Normal cardiomediastinal silhouette. Trachea is midline. No consolidation, pneumothorax or pleural effusion. Impression: No acute cardiopulmonary findings
[2017-06-28 09:23] LABS: Basophils % (Auto) 0.2 % (0.0-1.8); Eosinophils % (Auto) 0.1 % (0.0-4.3); Hematocrit 36.6 % (30.3-42.9); Hemoglobin 11.9 gm/dl (10.1-14.3); Lymphocytes # (Auto) 0.9 K/mm3 (1.2-5.4); Lymphocytes % (Auto) 10.2 % (13.4-35.0); Mean Corpuscular HGB Conc 33 % (30-34); Mean Corpuscular Hemoglobin 27 pg (28-32); Mean Corpuscular Volume 82 fl (79-97); Monocytes # (Auto) 0.5 K/mm3 (0.0-0.8); Monocytes % (Auto) 5.2 % (0.0-7.3); Platelet Count 393 K/mm3 (140-440); Red Cell Distribution Width 15.6 % (13.2-15.2)
[2017-06-28 09:37] LABS: BUN/Creatinine Ratio 40; Blood Urea Nitrogen 16 mg/dL (7-17); Calcium 10.5 mg/dL (8.4-10.2); Hemolysis Index 17
[2017-06-28 10:05] LABS: INR 0.88 (0.87-1.13)
[2017-06-28 10:06] LABS: Partial Thromboplastin Time 25.8 Sec. (24.2-36.6)
[2017-06-28] MEDS ORDERED: NORCO 10/325 PO ONE (10:49)
--- NOTE | 2017-06-28 11:17 | Emergency Department Report ---
ED Lower Extremity HPI - General Chief Complaint: Extremity Injury, Lower Stated Complaint: LUPUS FLARE UP Time Seen by Provider: 06/28/17 10:21 Source: patient, family, EMS Mode of arrival: Wheelchair Limitations: No Limitations - History of Present Illness Initial Comments: 31-year-old female with a past medical history of lupus, PE, and asthma presents to the hospital complains of bruising and pain to her left inner upper thigh 2 days. Pain is constant, aching, worse with palpation, movement, and ambulation. Pain is very consistent in intensity. Patient denies any trauma, fever, or fall. Patient has not actually seen a bruising but states that her mother told her there was bruising to the area. Patient has memory problems and has difficulty identifying certain details of her past medical history. She has been out of her Coumadin for several months because she has been missing her appointments. Patient states her last only diagnosis of pulmonary embolism was 20 years ago. She denies any diagnosis of DVT. She has been on Coumadin she thinks for the past year. Patient complaining of shortness of breath since earlier this morning but denies any shortness of breath since or shortness of breath over the last several days. No chest pain or calf tenderness. Patient states she is not sexually active at this time. - Related Data Home Medications Medication Instructions Recorded Confirmed Last Taken Gabapentin [Neurontin] 100 mg PO QHS 06/28/17 06/28/17 06/27/17 Mycophenolate [Cellcept] 1,000 mg PO BID 06/28/17 06/28/17 06/27/17 RX: predniSONE [Deltasone] 30 mg PO QAM 06/28/17 06/28/17 06/27/17 Allergies Allergy/AdvReac Type Severity Reaction Status Date / Time acetaminophen [From Percocet] Allergy Hives Verified 07/30/14 08:04 hydroxychloroquine sulfate Allergy Shortness Verified 11/15/16 23:53 [From Plaquenil] of Breath oxycodone HCl [From Percocet] Allergy Hives Verified 07/30/14 08:04 ED Review of Systems ROS: Stated complaint: LUPUS FLARE UP Other details as noted in HPI Comment: All other systems reviewed and negative Other: Constitutional: No fevers chills Eyes: No eye pain visual changes ENT: No ear pain or throat pain Neck: Denies pain Respiratory: Denies cough wheezing Cardiovascular: Denies chest pain, palpitations, syncope GI: Denies abdominal pain, nausea, vomiting, diarrhea : Denies dysuria Musculoskeletal: as per hpi Skin: Denies rash, lesions, erythema Neurologic: Denies headache, numbness, weakness Psychiatric: Denies suicidal ideation, hallucinations thy ED Past Medical Hx - Past Medical History Previous Medical History?: Yes Hx Congestive Heart Failure: No Hx Diabetes: No Hx Pulmonary Embolism: Yes (age 21) Hx Asthma: Yes Hx COPD: No Additional medical history: bronchitis,Lupus - Surgical History Past Surgical History?: Yes Additional Surgical History: 2 c-sections - Social History Smoking Status: Never Smoker Substance Use Type: Marijuana - Medications Home Medications: Home Medications Medication Instructions Recorded Confirmed Last Taken Type Gabapentin [Neurontin] 100 mg PO QHS 06/28/17 06/28/17 06/27/17 History Mycophenolate [Cellcept] 1,000 mg PO BID 06/28/17 06/28/17 06/27/17 History RX: predniSONE [Deltasone] 30 mg PO QAM 06/28/17 06/28/17 06/27/17 History ED Physical Exam - General Limitations: No Limitations - Other Other exam information: General: No limitations, patient is alert in no acute distress Head exam: Atraumatic, normocephalic Eyes exam: Normal appearance, pupils equal reactive to light, extraocular movements intact ENT: Moist mucous membrane, normal oropharynx Neck exam: Normal inspection, full range of motion, no meningismus nontender Respiratory exam: Clear to auscultation bilateral, no wheezes, rales, crackles Cardiovascular: Normal rate and rhythm, normal heart sounds Abdomen: Soft, nondistended, and nontender, with normal bowel sounds, no rebound, or guarding Extremity: Tenderness to left thigh along the gracilis and obturator longus muscles. Pain also extends to the inguinal area. No lymphadenopathy, erythema , warmth, swelling, or bruising noted. Pain also increases with movement. Back: Normal Inspection, full range of motion, no tenderness Neurologic: Alert, oriented x3, cranial nerves intact, no motor or sensory deficit Psychiatric: normal affect, normal mood Skin: Warm, dry, intact ED Course Vital Signs 06/28/17 06/28/17 08:20 10:26 Temperature 98.2 F Pulse Rate 103 H 94 H Respiratory 18 18 Rate Blood Pressure 85/66 Blood Pressure 118/79 [Left] O2 Sat by Pulse 99 100 Oximetry - Consultations Consultation #1: 06/28/17 11:[address] Goldsmith land degradation analyst manager motor. Will consult tommorrow 06/28/17 11:[address] Lilly on-call vascular surgeon. Will consult ED Lower Extremity MDM - Lab Data Result diagrams: 06/28/17 08:50 06/28/17 08:50 Lab Results 06/28/17 06/28/17 06/28/17 Range/Units 08:50 08:50 08:50 WBC 8.9 (4.5-11.0) K/mm3 RBC 4.50 (3.65-5.03) M/mm3 Hgb 11.9 (10.1-14.3) gm/dl Hct 36.6 (30.3-42.9) % MCV 82 (79-97) fl MCH 27 L (28-32) pg MCHC 33 (30-34) % RDW 15.6 H (13.2-15.2) % Plt Count 393 (140-440) K/mm3 Lymph % (Auto) 10.2 L (13.4-35.0) % [place] % (Auto) 5.2 (0.0-7.3) % Eos % (Auto) 0.1 (0.0-4.3) % Baso % (Auto) 0.2 (0.0-1.8) % Lymph # 0.9 L (1.2-5.4) K/mm3 [place] # 0.5 (0.0-0.8) K/mm3 Eos # 0.0 (0.0-0.4) K/mm3 Baso # 0.0 (0.0-0.1) K/mm3 Seg Neutrophils % 84.3 H (40.0-70.0) % Seg Neutrophils # 7.5 (1.8-7.7) K/mm3 PT 12.4 (12.2-14.9) Sec. INR 0.88 (0.87-1.13) APTT 25.8 (24.2-36.6) Sec. Sodium 140 (137-145) mmol/L Potassium 4.1 (3.6-5.0) mmol/L Chloride 95.1 L (98-107) mmol/L Carbon Dioxide 24 (22-30) mmol/L Anion Gap 25 mmol/L BUN 16 (7-17) mg/dL Creatinine 0.4 L (0.7-1.2) mg/dL Estimated GFR > 60 ml/min BUN/Creatinine Ratio 40 % Glucose 86 (65-100) mg/dL Calcium 10.5 H (8.4-10.2) mg/dL Urine Color (Yellow) Urine Turbidity (Clear) Urine pH (5.0-7.0) Ur Specific [place] (1.003-1.030) Urine Protein (Negative) mg/dL Urine Glucose (UA) (Negative) mg/dL Urine Ketones (Negative) mg/dL Urine Blood (Negative) Urine Nitrite (Negative) Ur Reducing Substances Urine Bilirubin (Negative) Urine Ictotest Urine Urobilinogen (<2.0) mg/dL Ur Leukocyte Esterase (Negative) Urine WBC (Auto) (0.0-6.0) /HPF Urine RBC (Auto) (0.0-6.0) /HPF U Epithel Cells (Auto) (0-13.0) /HPF Urine Mucus /HPF Urine HCG, Qual (Negative) 06/28/17 Range/Units 10:50 WBC (4.5-11.0) K/mm3 RBC (3.65-5.03) M/mm3 Hgb (10.1-14.3) gm/dl Hct (30.3-42.9) % MCV (79-97) fl MCH (28-32) pg MCHC (30-34) % RDW (13.2-15.2) % Plt Count (140-440) K/mm3 Lymph % (Auto) (13.4-35.0) % [place] % (Auto) (0.0-7.3) % Eos % (Auto) (0.0-4.3) % Baso % (Auto) (0.0-1.8) % Lymph # (1.2-5.4) K/mm3 [place] # (0.0-0.8) K/mm3 Eos # (0.0-0.4) K/mm3 Baso # (0.0-0.1) K/mm3 Seg Neutrophils % (40.0-70.0) % Seg Neutrophils # (1.8-7.7) K/mm3 PT (12.2-14.9) Sec. INR (0.87-1.13) APTT (24.2-36.6) Sec. Sodium (137-145) mmol/L Potassium (3.6-5.0) mmol/L Chloride (98-107) mmol/L Carbon Dioxide (22-30) mmol/L Anion Gap mmol/L BUN (7-17) mg/dL Creatinine (0.7-1.2) mg/dL Estimated GFR ml/min BUN/Creatinine Ratio % Glucose (65-100) mg/dL Calcium (8.4-10.2) mg/dL Urine Color Yellow (Yellow) Urine Turbidity Clear (Clear) Urine pH 6.0 (5.0-7.0) Ur Specific [place] 1.026 (1.003-1.030) Urine Protein 30 mg/dl (Negative) mg/dL Urine Glucose (UA) Neg (Negative) mg/dL Urine Ketones Tr (Negative) mg/dL Urine Blood Neg (Negative) Urine Nitrite Neg (Negative) Ur Reducing Substances Not Reportable Urine Bilirubin Neg (Negative) Urine Ictotest Not Reportable Urine Urobilinogen < 2.0 (<2.0) mg/dL Ur Leukocyte Esterase Neg (Negative) Urine WBC (Auto) 2.0 (0.0-6.0) /HPF Urine RBC (Auto) 1.0 (0.0-6.0) /HPF U Epithel Cells (Auto) 2.0 (0-13.0) /HPF Urine Mucus 2+ /HPF Urine HCG, Qual Negative (Negative) - EKG Data -: EKG Interpreted by Me EKG shows normal: sinus rhythm, axis (67), QRS complexes (74), ST-T waves (no stemi/t wave inv) Rate: tachycardia (106) - Radiology Data Radiology results: report reviewed Read by radiologist Chest x-ray: No no acute findings CT chest angio: no Pulm emboli Critical Care Time: No Critical care attestation.: If time is entered above; I have spent that time in minutes in the direct care of this critically ill patient, excluding procedure time. ED Disposition Clinical Impression: Acute deep vein thrombosis (DVT) of left lower extremity, Lupus, Noncompliance with medication regimen, Subtherapeutic international normalized ratio (INR) Disposition: OP ADMIT IP TO THIS HOSP Is pt being admited?: Yes Condition: Stable Time of Disposition: 11:54 (Dr Hannah/hosp)
[2017-06-28] MEDS ORDERED: LOVENOX SUB-Q ONE (11:25)
[2017-06-28 11:27] LABS: HCG Qualitative,Urine Negative (Negative)
[2017-06-28] MEDS ORDERED: DILAUDID IV ONE (11:40)
[2017-06-28] MEDS ORDERED: ZOFRAN IV ONE (11:41)
[2017-06-28 11:42] LABS: Mucus,Urine 2+ /HPF
[2017-06-28] MEDS ORDERED: MORPHINE IV ONE (12:33)
[2017-06-28 12:50] LABS: Bilirubin,Urine NEG (Negative); Blood,Urine NEG (Negative); Color,Urine Yellow (Yellow); Nitrite,Urine NEG (Negative); Urobilinogen,Urine < 2.0 mg/dL (<2.0)
--- NOTE | 2017-06-28 13:04 | History and Physical Report ---
History of Present Illness Chief complaint: My leg is swollen History of present illness: 31 YO Female with PE, Asthma, SLE, Bronchitis, Noncompliance presents to ED for evaluation. Pt states that she has experienced bruising and pain to her left inner upper thigh for the past 2 days with worsening symptoms over the past day. Pain is 8/10 in severity, constant, aching, worse with palpation, movement , and ambulation. Pt states that she has been out of her Coumadin for several months because she has been missing her appointments, and has not seen a audit officer in over a year. Pt denies fever, chills, palpitations, NVD, shortness of breath, recent ill contacts, productive cough. Pt acknowledges a malar rash, dry skin, and feeling tires. Pt seen and evaluated in ED and found to have an extensive DVT to the LLE. Pt started on therapeutic anticoagulation, and resumption of coumadin therapy. Vascular surgery consulted in ED. Hematology consulted in ED. Past History Past Medical History: pulmonary embolism, other (SLE, Asthma) Past Surgical History: Social history: single. denies: smoking, alcohol abuse, prescription drug abuse Family history: CAD, hypertension, other (Lupus) Medications and Allergies Allergies Allergy/AdvReac Type Severity Reaction Status Date / Time acetaminophen [From Percocet] Allergy Hives Verified 07/30/14 08:04 hydroxychloroquine sulfate Allergy Shortness Verified 11/15/16 23:53 [From Plaquenil] of Breath oxycodone HCl [From Percocet] Allergy Hives Verified 07/30/14 08:04 Home Medications Medication Instructions Recorded Confirmed Last Taken Type Gabapentin [Neurontin] 100 mg PO QHS 06/28/17 06/28/17 06/27/17 History Mycophenolate [Cellcept] 1,000 mg PO BID 06/28/17 06/28/17 06/27/17 History predniSONE [Deltasone] 30 mg PO QAM 06/28/17 06/28/17 06/27/17 History Review of Systems Constitutional: weakness, no weight loss, no weight gain, no fever, no chills Ears, nose, mouth and throat: no ear pain, no ear discharge, no tinnitis, no decreased hearing, no nose pain Cardiovascular: no chest pain, no orthopnea, no palpitations, no rapid/ irregular heart beat, no edema, no syncope Respiratory: no cough, no cough with sputum, no excessive sputum, no hemoptysis , no shortness of breath Gastrointestinal: no nausea, no vomiting, no diarrhea Genitourinary Female: no pelvic pain, no flank pain, no menorrhagia, no dysuria , no urinary frequency, no urgency Rectal: no pain, no incontinence, no bleeding Musculoskeletal: no neck stiffness, no neck pain, no shooting arm pain, no arm numbness/tingling, no low back pain Integumentary: rash, no pruritis, no redness, no sores, no wounds, no jaundice Neurological: no transient paralysis, no paralysis, no parathesias, no numbness , no tingling, no seizures Psychiatric: anxiety, no memory loss, no change in sleep habits, no sleep disturbances, no insomnia, no hypersomnia, no change in appetite Endocrine: no cold intolerance, no heat intolerance, no polyphagia, no excessive thirst, no polydipsia, no polyuria, no nocturia Hematologic/Lymphatic: no easy bruising, no easy bleeding Allergic/Immunologic: no urticaria, no allergic rhinitis, no wheezing Exam - Constitutional Vitals: Temp Pulse Resp BP Pulse Ox 98.2 F 94 H 18 118/79 100 06/28/17 08:20 06/28/17 10:26 06/28/17 10:26 06/28/17 10:26 06/28/17 10:26 General appearance: Present: mild distress, cachectic, disheveled - EENT Eyes: Present: PERRL ENT: hearing intact, clear oral mucosa - Neck Neck: Present: supple, normal ROM - Respiratory Respiratory effort: normal Respiratory: bilateral: CTA - Cardiovascular Heart Sounds: Present: S1 & S2. Absent: rub, click - Extremities Extremities: pulses symmetrical, No edema Extremity abnormal: edema (LLE) Peripheral Pulses: within normal limits - Abdominal General gastrointestinal: Present: soft, non-tender, non-distended, normal bowel sounds Female genitourinary: Present: normal - Integumentary Integumentary: Present: clear, warm, dry - Musculoskeletal Musculoskeletal: gait normal, strength equal bilaterally - Psychiatric Psychiatric: appropriate mood/affect, intact judgment & insight - Neurologic Neurologic: CNII-XII intact, moves all extremities Results - Labs CBC & Chem 7: 06/28/17 08:50 06/28/17 08:50 Labs: Abnormal lab results 06/28/17 06/28/17 Range/Units 08:50 08:50 MCH 27 L (28-32) pg RDW 15.6 H (13.2-15.2) % Lymph % (Auto) 10.2 L (13.4-35.0) % Lymph # 0.9 L (1.2-5.4) K/mm3 Seg Neutrophils % 84.3 H (40.0-70.0) % Chloride 95.1 L (98-107) mmol/L Creatinine 0.4 L (0.7-1.2) mg/dL Calcium 10.5 H (8.4-10.2) mg/dL Assessment and Plan - Patient Problems (1) Acute deep vein thrombosis (DVT) of left lower extremity Current Visit: Yes Status: Acute Qualifiers: Affected thrombotic vein of extremity: iliac Qualified Code(s): I82.422 - Acute embolism and thrombosis of left iliac vein Plan to address problem: Therapeutic anticoagulation with lovenox, resume coumadin therapy, (2) Lupus Current Visit: Yes Status: Acute Plan to address problem: continue current therapy, outpatient rheumatology f/U, continue cellcept and prednisone (3) Noncompliance with medication regimen Current Visit: Yes Status: Acute Plan to address problem: Pt counseled, (4) DVT prophylaxis Current Visit: Yes Status: Acute
--- NOTE | 2017-06-28 13:05 | Hem/Onc Consultation ---
History of Present Illness - Reason for Consult Consult date: 06/28/17 - History of Present Illness Patient seen for DVT. Per francia she had PE once in her life in 11th grade. She since has been on coumadin but states she stopped taking it on her own. States she was at [facility] and they mentioned about blood clot and recommended anticoagulation but she was not able to follow through due to the hollidays. Admitted with DVT Past History Past Medical History: other (states she has Lupus and h/o DVT) Medications and Allergies Allergies Allergy/AdvReac Type Severity Reaction Status Date / Time acetaminophen [From Percocet] Allergy Hives Verified 07/30/14 08:04 hydroxychloroquine sulfate Allergy Shortness Verified 11/15/16 23:53 [From Plaquenil] of Breath oxycodone HCl [From Percocet] Allergy Hives Verified 07/30/14 08:04 Home Medications Medication Instructions Recorded Confirmed Last Taken Type Famotidine [Pepcid] 20 mg PO BID tablet 11/20/16 11/26/16 Unknown Rx Ibuprofen [Motrin 800 MG tab] 800 mg PO Q8HR PRN #30 tablet 11/20/16 11/26/16 Unknown Rx Prednisone [predniSONE 10 mg 10 mg PO .TAPER #1 tab.ds.pk 11/29/16 Unknown Rx (6-Day Pack, 21 Tabs)] Review of Systems All systems: negative (left hip pain oderate) Exam - Constitutional Vitals: Last Vital Signs Temp 98.2 F 06/28/17 08:20 Pulse 94 H 06/28/17 10:26 Resp 18 06/28/17 10:26 BP 118/79 06/28/17 10:26 Pulse Ox 100 06/28/17 10:26 - EENT Eyes: PERRL ENT: hearing intact Lymph node exam: bilateral cervical - Neck Neck: supple - Respiratory Respiratory: bilateral: CTA - Cardiovascular Rhythm: regular Heart Sounds: Present: S1 & S2 - Gastrointestinal General gastrointestinal: Present: soft - Integumentary Integumentary: clear (vitiligo) - Neurologic Neurologic: CNII-XII intact - Psychiatric Psychiatric: appropriate mood/affect Results - Labs lab Results: Laboratory Results - last 24 hr 06/28/17 06/28/17 06/28/17 08:50 08:50 08:50 WBC 8.9 RBC 4.50 Hgb 11.9 Hct 36.6 MCV 82 MCH 27 L MCHC 33 RDW 15.6 H Plt Count 393 Lymph % (Auto) 10.2 L [place] % (Auto) 5.2 Eos % (Auto) 0.1 Baso % (Auto) 0.2 Lymph # 0.9 L [place] # 0.5 Eos # 0.0 Baso # 0.0 Seg Neutrophils % 84.3 H Seg Neutrophils # 7.5 PT 12.4 INR 0.88 APTT 25.8 Sodium 140 Potassium 4.1 Chloride 95.1 L Carbon Dioxide 24 Anion Gap 25 BUN 16 Creatinine 0.4 L Estimated GFR > 60 BUN/Creatinine Ratio 40 Glucose 86 Calcium 10.5 H Urine Color Urine Turbidity Urine pH Ur Specific [place] Urine Protein Urine Glucose (UA) Urine Ketones Urine Blood Urine Nitrite Ur Reducing Substances Urine Bilirubin Urine Ictotest Urine Urobilinogen Ur Leukocyte Esterase Urine WBC (Auto) Urine RBC (Auto) U Epithel Cells (Auto) Urine Mucus Urine HCG, Qual 06/28/17 10:50 WBC RBC Hgb Hct MCV MCH MCHC RDW Plt Count Lymph % (Auto) [place] % (Auto) Eos % (Auto) Baso % (Auto) Lymph # [place] # Eos # Baso # Seg Neutrophils % Seg Neutrophils # PT INR APTT Sodium Potassium Chloride Carbon Dioxide Anion Gap BUN Creatinine Estimated GFR BUN/Creatinine Ratio Glucose Calcium Urine Color Yellow Urine Turbidity Clear Urine pH 6.0 Ur Specific [place] 1.026 Urine Protein 30 mg/dl Urine Glucose (UA) Neg Urine Ketones Tr Urine Blood Neg Urine Nitrite Neg Ur Reducing Substances Not Reportable Urine Bilirubin Neg Urine Ictotest Not Reportable Urine Urobilinogen < 2.0 Ur Leukocyte Esterase Neg Urine WBC (Auto) 2.0 Urine RBC (Auto) 1.0 U Epithel Cells (Auto) 2.0 Urine Mucus 2+ Urine HCG, Qual Negative Assessment and Plan - Patient Problems (1) Acute deep vein thrombosis (DVT) of left lower extremity Current Visit: Yes Status: Acute Plan to address problem: This is probably secondary to non compliance and sub therapeutic INR. Agree with anticoagulation. Outpatient follow up recommended.
[2017-06-28] MEDS ORDERED: DULCOLAX PR PRN (13:06)
[2017-06-28] MEDS ORDERED: PROVENTIL IH PRN (13:06)
[2017-06-28] MEDS ORDERED: ZOFRAN IV PRN (13:06)
[2017-06-28] MEDS ORDERED: MILK OF MAGNESIA PO PRN (13:06)
--- NOTE | 2017-06-28 14:24 | Cat Scan Report ---
CTA chest: History: Shortness of breath. Acute left leg DVT. Findings: No endobronchial or mediastinal mass. No mediastinal, hilar or axillary adenopathy. No evidence of lytic aneurysm or pulmonary embolism. No pleural pericardial effusion. Normal lung parenchyma. No discrete nodularity or consolidation. Impression: No evidence of pulmonary embolism. No acute changes.
[2017-06-28] MEDS ORDERED: HEPARIN IV ONE (16:40)
--- NOTE | 2017-06-28 16:41 | Consultation ---
History of Present Illness - Reason for Consult Consult date: 06/28/17 LLE extensive DVT - History of Present Illness 31 year old female with PE, Asthma, SLE, Bronchitis, Noncompliance presents to ED for evaluation. The patient has unusual slightly childlike mannerisms. She denies prior stroke, hematochezia, melena, prior procedures within the last year , hemoptysis, but does mention that she had some faint coffee ground hematemesis 3 months ago which has not recurred. The patient reports that her left leg has had some discomfort for the last week , but it started becoming very painful the last 2 days which prompted her to come to the emergency room. DVT study demonstrates extensive left lower extremity DVT. DVT extends from the external iliac vein to the tibial veins. Past History Past Medical History: pulmonary embolism, other (SLE, Asthma) Past Surgical History: Social history: single. denies: smoking, alcohol abuse, prescription drug abuse Family history: CAD, hypertension, other (Lupus) Medications and Allergies Allergies Allergy/AdvReac Type Severity Reaction Status Date / Time acetaminophen [From Percocet] Allergy Hives Verified 07/30/14 08:04 hydroxychloroquine sulfate Allergy Shortness Verified 11/15/16 23:53 [From Plaquenil] of Breath oxycodone HCl [From Percocet] Allergy Hives Verified 07/30/14 08:04 Home Medications Medication Instructions Recorded Confirmed Last Taken Type Gabapentin [Neurontin] 100 mg PO QHS 06/28/17 06/28/17 06/27/17 History Mycophenolate [Cellcept] 1,000 mg PO BID 06/28/17 06/28/17 06/27/17 History predniSONE [Deltasone] 30 mg PO QAM 06/28/17 06/28/17 06/27/17 History Active Meds: Active Medications Acetaminophen (Tylenol) 650 mg PO Q4H PRN PRN Reason: Pain MILD(1-3)/Fever >100.5/[place] Albuterol (Proventil) 2.5 mg IH Q4HRT PRN PRN Reason: Shortness Of Breath Bisacodyl (Dulcolax) 10 mg VA QDAY PRN PRN Reason: Constipation unrelieved by MOM Gabapentin (Neurontin) 100 mg PO QHS [place] Magnesium Hydroxide (Milk Of Magnesia) 30 ml PO Q4H PRN PRN Reason: Constipation Mycophenolate Mofetil (Cellcept) 1,000 mg PO BID [place] Ondansetron HCl (Zofran) 4 mg IV Q8H PRN PRN Reason: N/V unrelieved by Reglan Prednisone (Deltasone) 30 mg PO QAM [place] Review of Systems All systems: negative (see HPI) Exam - Constitutional Vitals: Temp Pulse Resp BP Pulse Ox 98.2 F 94 H 18 118/79 100 06/28/17 08:20 06/28/17 10:26 06/28/17 10:26 06/28/17 10:26 06/28/17 10:26 General appearance: Present: mild distress (LLE discomfort) - EENT Eyes: Present: EOM intact ENT: hearing intact - Respiratory Respiratory effort: normal - Extremities Extremities: pulses intact Extremity abnormal: edema (LLE 2-3+) - Abdominal General gastrointestinal: Present: soft, non-tender - Psychiatric Psychiatric: appropriate mood/affect, cooperative Results - Labs CBC & Chem 7: 06/28/17 08:50 06/28/17 08:50 Labs: Abnormal lab results 06/28/17 06/28/17 Range/Units 08:50 08:50 MCH 27 L (28-32) pg RDW 15.6 H (13.2-15.2) % Lymph % (Auto) 10.2 L (13.4-35.0) % Lymph # 0.9 L (1.2-5.4) K/mm3 Seg Neutrophils % 84.3 H (40.0-70.0) % Chloride 95.1 L (98-107) mmol/L Creatinine 0.4 L (0.7-1.2) mg/dL Calcium 10.5 H (8.4-10.2) mg/dL - Imaging and Cardiology Venous US: report reviewed, image reviewed Assessment and Plan 31-year-old female with lupus and extensive left lower extremity DVT with prior episode of pulmonary embolism. Given the extent of the deep venous thrombosis which is from the iliac veins to the tibial veins, the patient will likely have severe post-thrombotic syndrome if no intervention is performed. If an intervention is performed, she will likely have post thrombotic syndrome, but it likely be much more mild in severity. She is overall low risk from a bleeding standpoint. Given the history of faint coffee ground hematemesis, will place patient on PPI. Risks, benefits, and alternatives discussed with the patient for conservative care versus aggressive endovascular management. Patient has elected for aggressive endovascular management. She understands she will need to be compliant afterwards or she will have rethrombosis. PVS will further discuss with the patient over the weekend to confirm she still wants an aggressive approach to management given her previous noncompliance with medical therapy. Place patient on heparin drip for now.
[2017-06-28] MEDS ORDERED: HEPARIN 10,000 UNITS/10 ML IV ONE (17:00)
[2017-06-28] MEDS ORDERED: COUMADIN PO SCH (17:00)
[2017-06-28 17:43] LABS: Hematocrit 34.3 % (30.3-42.9); Hemoglobin 11.1 gm/dl (10.1-14.3)
[2017-06-28 18:04] LABS: INR 0.98 (0.87-1.13)
[2017-06-28 18:05] LABS: Partial Thromboplastin Time 30.6 Sec. (24.2-36.6)
[2017-06-28] MEDS: NEURONTIN PO SCH (21:41)
[2017-06-28] MEDS: CELLCEPT PO SCH (21:41)
[2017-06-28] MEDS ORDERED: LOVENOX SUB-Q SCH ×2 (22:00)
[2017-06-29] MEDS: TYLENOL PO PRN ×3 (03:48→22:22)
[2017-06-29] MEDS: HEPARIN/ 0.45% NACL-25,000 UNIT/500 ML 25,000 UNIT/500 ML BAG IV SCH (06:17)
[2017-06-29] MEDS: PROTONIX PO SCH ×2 (10:12→12:36)
[2017-06-29] MEDS: DELTASONE PO SCH (10:13)
[2017-06-29] MEDS: CELLCEPT PO SCH ×2 (10:15→22:22)
[2017-06-29] MEDS ORDERED: Fluarix Quad 2017-2018(36 MOS+ IM ONE (12:00)
--- NOTE | 2017-06-29 13:34 | Hem/Onc Progress Note ---
Subjective Date of service: 06/29/17 Interval history: Patient has child like dante\ - DVT left leg - she reports left thigh is still swollen Patient currently on Heparin drip Objective - Constitutional Vitals: Last Vital Signs Temp 98.3 F 06/29/17 08:19 Pulse 118 H 06/29/17 08:19 Resp 18 06/29/17 08:19 BP 129/70 06/29/17 08:19 Pulse Ox 99 06/29/17 10:00 Pain Intensity (0-10): denies any pain General appearance: no acute distress, mild distress - EENT Eyes: PERRL, EOM intact ENT: hearing intact, clear oral mucosa, dentition normal - Neck Neck: supple - Cardiovascular Rhythm: regular Heart Sounds: Present: S1 & S2 Extremities: No edema - Labs Lab Results: Laboratory Results - last 24 hr 06/28/17 06/28/17 17:18 17:18 Hgb 11.1 Hct 34.3 Plt Count 406 PT 13.5 INR 0.98 APTT 30.6
--- NOTE | 2017-06-29 13:50 | Progress Note ---
Assessment and Plan Assessment and plan: 31 -year-old -[place] female with past medical history significant for PE, lupus, medication noncompliance presented complaining of left leg pain. Patient had History of PE and on warfarin discontinued a month ago Left lower extremity DVT - Doppler ultrasound showed extensive DVT on the left lower extremity - CTA is negative for PE - Patient is on IV heparin drip - Vascular surgery and hematology consult appreciated Medication noncompliance - Patient counseled extensively Lupus - Continue home medications Disposition - Continue inpatient care - Vascular surgery will follow her. History Interval history: Patient was seen and about at this morning, patient was childish behavior, she is complaining on the right inner thigh. I have discussed the management plan with the patient's mother. And mother said that patient is very sensitive for pain medications and she said no narcotics. Hospitalist Physical - Physical exam Narrative exam: Not in cardiopulmonary distress. The patient appeared well nourished and normally developed. Vital signs as documented. Head exam is unremarkable. No scleral icterus . Neck is without jugular venous distension, thyromegaly, or carotid bruits. Lungs are clear to auscultation. Cardiac exam reveals regular rate and Rhythm. First and second heart sounds normal. No murmurs, rubs or gallops. Abdominal exam reveals normal bowel sounds, no masses, no organomegaly and no aortic enlargement. Extremities patient complains pain on the left inner thigh, didn't examine it because patient doesn't want to. 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 No focal weakness. - Constitutional Vitals: Temp Pulse Resp BP Pulse Ox 98.3 F 118 H 18 129/70 99 06/29/17 08:19 06/29/17 08:19 06/29/17 08:19 06/29/17 08:19 06/29/17 10:00 General appearance: Present: mild distress (LLE discomfort) Results - Labs CBC & Chem 7: 06/28/17 17:18 06/28/17 08:50 Labs: Laboratory Last Values WBC 8.9 K/mm3 (4.5-11.0) 06/28/17 08:50 RBC 4.50 M/mm3 (3.65-5.03) 06/28/17 08:50 Hgb 11.1 gm/dl (10.1-14.3) 06/28/17 17:18 Hct 34.3 % (30.3-42.9) 06/28/17 17:18 MCV 82 fl (79-97) 06/28/17 08:50 MCH 27 pg (28-32) L 06/28/17 08:50 MCHC 33 % (30-34) 06/28/17 08:50 RDW 15.6 % (13.2-15.2) H 06/28/17 08:50 Plt Count 406 K/mm3 (140-440) 06/28/17 17:18 Lymph % (Auto) 10.2 % (13.4-35.0) L 06/28/17 08:50 [place] % (Auto) 5.2 % (0.0-7.3) 06/28/17 08:50 Eos % (Auto) 0.1 % (0.0-4.3) 06/28/17 08:50 Baso % (Auto) 0.2 % (0.0-1.8) 06/28/17 08:50 Lymph # 0.9 K/mm3 (1.2-5.4) L 06/28/17 08:50 [place] # 0.5 K/mm3 (0.0-0.8) 06/28/17 08:50 Eos # 0.0 K/mm3 (0.0-0.4) 06/28/17 08:50 Baso # 0.0 K/mm3 (0.0-0.1) 06/28/17 08:50 Seg Neutrophils % 84.3 % (40.0-70.0) H 06/28/17 08:50 Seg Neutrophils # 7.5 K/mm3 (1.8-7.7) 06/28/17 08:50 PT 13.5 Sec. (12.2-14.9) 06/28/17 17:18 INR 0.98 (0.87-1.13) 06/28/17 17:18 APTT 30.6 Sec. (24.2-36.6) 06/28/17 17:18 Sodium 140 mmol/L (137-145) 06/28/17 08:50 Potassium 4.1 mmol/L (3.6-5.0) 06/28/17 08:50 Chloride 95.1 mmol/L (98-107) L 06/28/17 08:50 Carbon Dioxide 24 mmol/L (22-30) 06/28/17 08:50 Anion Gap 25 mmol/L 06/28/17 08:50 BUN 16 mg/dL (7-17) 06/28/17 08:50 Creatinine 0.4 mg/dL (0.7-1.2) L 06/28/17 08:50 Estimated GFR > 60 ml/min 06/28/17 08:50 BUN/Creatinine Ratio 40 % 06/28/17 08:50 Glucose 86 mg/dL (65-100) 06/28/17 08:50 Calcium 10.5 mg/dL (8.4-10.2) H 06/28/17 08:50 Urine Color Yellow (Yellow) 06/28/17 10:50 Urine Turbidity Clear (Clear) 06/28/17 10:50 Urine pH 6.0 (5.0-7.0) 06/28/17 10:50 Ur Specific [place] 1.026 (1.003-1.030) 06/28/17 10:50 Urine Protein 30 mg/dl mg/dL (Negative) 06/28/17 10:50 Urine Glucose (UA) Neg mg/dL (Negative) 06/28/17 10:50 Urine Ketones Tr mg/dL (Negative) 06/28/17 10:50 Urine Blood Neg (Negative) 06/28/17 10:50 Urine Nitrite Neg (Negative) 06/28/17 10:50 Ur Reducing Substances Not Reportable 06/28/17 10:50 Urine Bilirubin Neg (Negative) 06/28/17 10:50 Urine Ictotest Not Reportable 06/28/17 10:50 Urine Urobilinogen < 2.0 mg/dL (<2.0) 06/28/17 10:50 Ur Leukocyte Esterase Neg (Negative) 06/28/17 10:50 Urine WBC (Auto) 2.0 /HPF (0.0-6.0) 06/28/17 10:50 Urine RBC (Auto) 1.0 /HPF (0.0-6.0) 06/28/17 10:50 U Epithel Cells (Auto) 2.0 /HPF (0-13.0) 06/28/17 10:50 Urine Mucus 2+ /HPF 06/28/17 10:50 Urine HCG, Qual Negative (Negative) 06/28/17 10:50 - Imaging and Cardiology CT scan - chest: report reviewed (no PE) Venous US: report reviewed (extensive DVT on the left lower extremity, and left iliac vein)
--- NOTE | 2017-06-29 16:11 | Progress Note ---
Assessment and Plan Extensive left leg iliofemoral DVT with slow but steady resolution. 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 Not sure if the noncompliance is secondary to overall diminished mental capacity versus socio-economic status or combination thereof. Aggressive therapy with pharmaco-mechanical thrombolysis with possible venoplasty and stent placement and a offer a more rapid resolution of her discomfort and diminished the chances of post phlebectomy syndrome however the noncompliance issue not be minimized as with her underlying lupus she would be at great risk of rethrombosis in the event her medication were discontinued. May preclude our abilities to safely lyse any thrombus. Luckily the natural history of this process is fibrinolysis with reopening of the affected vessels. I have elevated the foot of her bed and counseled her as to the necessity for continued elevation and will reassess tomorrow prior to the decision to proceed with intervention on Saturday. Subjective Date of service: 06/29/17 Interval history: She states that her left leg feels somewhat better but is still quite tender. She denies chest pain or shortness of breath. Objective - Exam Narrative Exam: Left leg exquisitely tender in the thigh. Very minimally tender in her calf. No significant swelling. - Constitutional Vitals: Vital Signs - 12hr 06/29/17 06/29/17 06/29/17 04:11 08:19 10:00 Temperature 97.7 F 98.3 F Pulse Rate 98 H 118 H Respiratory 14 18 Rate Blood Pressure 100/56 129/70 O2 Sat by Pulse 100 100 99 Oximetry - Labs CBC & Chem 7: 06/28/17 17:18 06/28/17 08:50
[2017-06-29] MEDS: NEURONTIN PO SCH (22:22)
[2017-06-30] MEDS: HEPARIN/ 0.45% NACL-25,000 UNIT/500 ML 25,000 UNIT/500 ML BAG IV SCH (07:38)
[2017-06-30 08:08] LABS: Basophils # (Auto) 0.1 K/mm3 (0.0-0.1); Basophils % (Auto) 0.7 % (0.0-1.8); Eosinophils % (Auto) 0.2 % (0.0-4.3); Hematocrit 32.7 % (30.3-42.9); Hemoglobin 10.5 gm/dl (10.1-14.3); Lymphocytes # (Auto) 1.8 K/mm3 (1.2-5.4); Lymphocytes % (Auto) 17.7 % (13.4-35.0); Mean Corpuscular HGB Conc 32 % (30-34); Mean Corpuscular Hemoglobin 27 pg (28-32); Mean Corpuscular Volume 83 fl (79-97); Monocytes # (Auto) 0.6 K/mm3 (0.0-0.8); Monocytes % (Auto) 5.8 % (0.0-7.3); Platelet Count 394 K/mm3 (140-440); Red Blood Count 3.96 M/mm3 (3.65-5.03); Red Cell Distribution Width 15.5 % (13.2-15.2)
[2017-06-30 08:14] LABS: BUN/Creatinine Ratio 24; Blood Urea Nitrogen 12 mg/dL (7-17); Calcium 9.6 mg/dL (8.4-10.2); Hemolysis Index 4
[2017-06-30 09:16] VITALS: BP 146/84
[2017-06-30] MEDS: CELLCEPT PO SCH (10:40)
[2017-06-30] MEDS: DELTASONE PO SCH (10:40)
[2017-06-30] MEDS: PROTONIX PO SCH (10:41)
--- NOTE | 2017-06-30 10:52 | Discharge Summary ---
Providers - Providers Date of Admission: 06/28/17 13:06 Date of discharge: 06/30/17 Attending physician: JOSSELINE SALAZAR 06/28/17 11:30 Consult to Physician [CONS] Urgent Consulting Provider: MIRA CONTRERAS Reason For Exam: acute dvt, coumadin noncompliance, lupus, Place consult to:: HEMATOLOGY Notified:: y Was contact made?: Yes If yes, spoke with:: DR CONTRERAS Time called:: 11:15 06/28/17 11:45 Consult to Physician [CONS] Urgent Consulting Provider: ISABEL ACOSTA Reason For Exam: acute left leg dvt Place consult to:: VASCULAR Notified:: y Was contact made?: Yes If yes, spoke with:: DR ACOSTA Time called:: 11:40 Primary care physician: SATNI BLUE Hospitalization Condition: Stable Hospital course: Assessment and Plan Assessment and plan: 31 -year-old -[place] female with past medical history significant for PE, lupus, medication noncompliance presented complaining of left leg pain. Patient had History of PE and on warfarin discontinued a month ago Left lower extremity DVT - Doppler ultrasound showed extensive DVT on the left lower extremity - CTA is negative for PE - Patient is on IV heparin drip - Vascular surgery and hematology consult appreciated Medication noncompliance - Patient counseled extensively Lupus - Continue home medications Disposition - Continue inpatient care - Vascular surgery will follow her. Exam - Constitutional Vitals: Temp Pulse Resp BP Pulse Ox 98.2 F 114 H 14 146/84 98 06/30/17 08:15 06/30/17 08:15 06/30/17 08:15 06/30/17 08:15 06/30/17 09:13 Plan Forms: AMA Form
--- NOTE | 2017-06-30 14:07 | Hem/Onc Progress Note ---
Subjective Date of service: 06/30/17 Interval history: nurses report that patient left the hospital AMA Objective - Constitutional Vitals: Last Vital Signs Temp 98.2 F 06/30/17 08:15 Pulse 114 H 06/30/17 08:15 Resp 14 06/30/17 08:15 BP 146/84 06/30/17 08:15 Pulse Ox 98 06/30/17 09:13 - Labs Lab Results: Laboratory Results - last 24 hr 06/30/17 06/30/17 07:06 07:06 WBC 10.1 RBC 3.96 Hgb 10.5 Hct 32.7 MCV 83 MCH 27 L MCHC 32 RDW 15.5 H Plt Count 394 Lymph % (Auto) 17.7 [place] % (Auto) 5.8 Eos % (Auto) 0.2 Baso % (Auto) 0.7 Lymph # 1.8 [place] # 0.6 Eos # 0.0 Baso # 0.1 Seg Neutrophils % 75.6 H Seg Neutrophils # 7.6 Sodium 135 L Potassium 3.4 L Chloride 93.3 L Carbon Dioxide 22 Anion Gap 23 BUN 12 Creatinine 0.5 L Estimated GFR > 60 BUN/Creatinine Ratio 24 Glucose 61 L Calcium 9.6
--- NOTE | 2017-07-01 10:17 | Vascular Lab Report ---
Left Lower Extremity Venous Duplex Study: Reason for Exam: Pain of the left lower extremity, history of PE. Comments on the Right: A limited duplex study was done of the proximal veins of the right lower extremity. All veins visualized are freely compressible without evidence of internal echogenicity. Flow is spontaneous and phasic throughout. No evidence of acute or chronic thrombus is seen in any of the vessels visualized. Comments on the Left: There is extensive acute DVT from left lead was occlusion of left gastrocnemius distal posterior tibial vein and peroneal veins, the extension of the thrombosis up to left distal external iliac vein . The remaining veins visualized are freely compressible without evidence of internal echogenicity. Spontaneous and phasic flow is absent proximally. Impression: Extensive acute DVT of left lower extremity from tibial and gastrocnemius veins to distal external iliac
== END 2017-06-30 12:05 | disposition left against medical advice (07) | DRG 301 ==
LOC: ED 08:03 → 3A 13:06
PROVIDERS: ADMIT Internal Medicine; ATTEND Internal Medicine
DX: I82.402 Acute embolism and thrombosis of unspecified deep veins of left lower extremity (principal); Z84.89 Family history of other specified conditions; J45.909 Unspecified asthma, uncomplicated; M32.9 Systemic lupus erythematosus, unspecified; Z53.21 Procedure and treatment not carried out due to patient leaving prior to being seen by health care provider; Z88.8 Allergy status to other drugs, medicaments and biological substances; Z91.14 Patient's other noncompliance with medication regimen; Z82.49 Family history of ischemic heart disease and other diseases of the circulatory system; Z86.711 Personal history of pulmonary embolism; Z79.899 Other long term (current) drug therapy
CPT/HCPCS: 36415; 71045; 71275; 80048; 81001; 81025; 85014; 85018; 85025; 85049; 85520; 85610; 85730; 90686; 93005; 93010; 96374; 96375; J1644; J1650; J2270; J2405; J7512; J7517; Q9967

== ENCOUNTER 2017-11-14 21:51 | Emergency (ER) | payer SELFPAY ==
[2017-11-14 23:20] LABS: Hematocrit 33.9 % (30.3-42.9); Hemoglobin 10.9 gm/dl (10.1-14.3); Mean Corpuscular HGB Conc 32 % (30-34); Mean Corpuscular Hemoglobin 26 pg (28-32); Mean Corpuscular Volume 79 fl (79-97); Platelet Count 318 K/mm3 (140-440); Red Blood Count 4.27 M/mm3 (3.65-5.03); Red Cell Distribution Width 14.4 % (13.2-15.2)
[2017-11-14 23:40] LABS: Alanine Aminotransferase 12 units/L (7-56); Albumin 3.8 g/dL (3.9-5); BUN/Creatinine Ratio 20; Blood Urea Nitrogen 10 mg/dL (7-17); Calcium 8.9 mg/dL (8.4-10.2); Hemolysis Index 22
[2017-11-15 00:38] LABS: Band Neutrophils # (Manual) 0.4 K/mm3; Eosinophils % (Manual) 0 % (0.0-4.3); Total Cells Counted 100
[2017-11-15 00:39] LABS: Anisocytosis Few; Hypochromasia 1+; Ovalocytes Few
[2017-11-15 01:24] LABS: Bilirubin,Urine NEG (Negative); Blood,Urine NEG (Negative); Color,Urine Yellow (Yellow); Mucus,Urine FEW /HPF; Protein,Urine <15 mg/dL mg/dL (Negative); Urobilinogen,Urine < 2.0 mg/dL (<2.0)
[2017-11-15] MEDS ORDERED: NACL 0.9% 1000 ML 1,000 ML IV ONE (02:05)
[2017-11-15] MEDS ORDERED: DECADRON IV ONE (02:05)
[2017-11-15] MEDS ORDERED: DILAUDID IV ONE (02:05)
--- NOTE | 2017-11-15 04:25 | Emergency Department Report ---
ED General Adult HPI - General Chief complaint: Dizziness Stated complaint: LUPUS CRISIS Time Seen by Provider: 11/15/17 01:53 Source: patient, family Mode of arrival: Ambulatory Limitations: No Limitations - History of Present Illness Initial comments: Patient is a 32-year-old Female past history of lupus who states she is having a lupus attack. Patient states she is having some increased rash on her arms chest and face as well as joint pain. Patient states she was taking CellCept but is no longer on these meds she states they're missing. Patient denies any nausea vomiting diarrhea fever chest pain at this time. Severity scale (0 -10): 0 - Related Data Home Medications Medication Instructions Recorded Confirmed Last Taken predniSONE [Deltasone] 30 mg PO QAM 06/28/17 07/09/17 06/27/17 Previous Rx's Medication Instructions Recorded Last Taken Type Apixaban [Eliquis] 5 mg PO BID #70 tablet 07/12/17 Unknown Rx Apixaban [Eliquis] 5 mg PO BID #70 tablet 07/13/17 Unknown Rx Mycophenolate [Cellcept] 1,000 mg PO BID 30 Days tablet 11/15/17 Unknown Rx Prednisone [predniSONE 10 mg 10 mg PO .TAPER #1 tab.ds.pk 11/15/17 Unknown Rx (6-Day Pack, 21 Tabs)] traMADol [Ultram] 50 mg PO Q6HR PRN #12 tablet 11/15/17 Unknown Rx Allergies Allergy/AdvReac Type Severity Reaction Status Date / Time hydroxychloroquine sulfate Allergy Shortness Verified 11/15/16 23:53 [From Plaquenil] of Breath oxycodone HCl [From Percocet] Allergy Hives Verified 07/30/14 08:04 ED Review of Systems ROS: Stated complaint: LUPUS CRISIS Other details as noted in HPI Comment: All other systems reviewed and negative ED Past Medical Hx - Past Medical History Previous Medical History?: Yes Hx Congestive Heart Failure: No Hx Diabetes: No Hx Pulmonary Embolism: Yes Hx Asthma: Yes Hx COPD: No Additional medical history: bronchitis, systemic and skin Lupus - Surgical History Past Surgical History?: Yes Additional Surgical History: 2 c-sections - Social History Smoking Status: Never Smoker Substance Use Type: Marijuana - Medications Home Medications: Home Medications Medication Instructions Recorded Confirmed Last Taken Type predniSONE [Deltasone] 30 mg PO QAM 01/11/0807/09/17 06/27/17 History Apixaban [Eliquis] 5 mg PO BID #70 tablet 07/12/17 Unknown Rx Apixaban [Eliquis] 5 mg PO BID #70 tablet 07/13/17 Unknown Rx Mycophenolate [Cellcept] 1,000 mg PO BID 30 Days tablet 11/15/17 Unknown Rx Prednisone [predniSONE 10 mg 10 mg PO .TAPER #1 tab.ds.pk 11/15/17 Unknown Rx (6-Day Pack, 21 Tabs)] traMADol [Ultram] 50 mg PO Q6HR PRN #12 tablet 11/15/17 Unknown Rx ED Physical Exam - General Limitations: No Limitations General appearance: alert, in no apparent distress - Head Head exam: Present: atraumatic, normocephalic - Eye Eye exam: Present: normal appearance - ENT ENT exam: Present: mucous membranes moist - Neck Neck exam: Present: normal inspection - Respiratory Respiratory exam: Present: normal lung sounds bilaterally. Absent: respiratory distress, wheezes, rales, rhonchi - Cardiovascular Cardiovascular Exam: Present: regular rate, normal rhythm. Absent: systolic murmur, diastolic murmur, rubs, gallop - GI/Abdominal GI/Abdominal exam: Present: soft, normal bowel sounds. Absent: distended, tenderness, guarding, rebound - Extremities Exam Extremities exam: Present: normal inspection - Back Exam Back exam: Present: normal inspection - Neurological Exam Neurological exam: Present: alert, oriented X3 - Psychiatric Psychiatric exam: Present: normal affect, normal mood - Skin Skin exam: Present: warm, dry, intact, normal color, rash (hyperpigmented rash on the bilateral upper extremities chest wall as well as her cheeks) ED Course Vital Signs 11/14/17 11/15/17 11/15/17 21:56 01:58 02:00 Temperature 98.2 F Pulse Rate 68 76 Respiratory 20 23 Rate Blood Pressure 110/71 102/53 O2 Sat by Pulse 100 85 100 Oximetry 11/15/17 11/15/17 11/15/17 02:15 02:30 02:45 Temperature Pulse Rate 84 90 83 Respiratory 15 24 12 Rate Blood Pressure 99/57 101/58 115/68 O2 Sat by Pulse 97 100 Oximetry 11/15/17 11/15/17 11/15/17 03:00 03:16 03:30 Temperature Pulse Rate 86 94 H 82 Respiratory 19 21 12 Rate Blood Pressure 115/68 115/68 105/65 O2 Sat by Pulse 100 100 100 Oximetry 11/15/17 11/15/17 11/15/17 03:45 04:00 04:05 Temperature Pulse Rate 74 78 Respiratory 15 19 14 Rate Blood Pressure 111/69 108/40 O2 Sat by Pulse 100 97 99 Oximetry ED Medical Decision Making - Lab Data Result diagrams: 11/14/17 22:28 11/14/17 22:28 Lab Results 11/14/17 11/14/17 11/14/17 Range/Units 22:28 22:28 22:28 WBC 5.0 (4.5-11.0) K/mm3 RBC 4.27 (3.65-5.03) M/mm3 Hgb 10.9 (10.1-14.3) gm/dl Hct 33.9 (30.3-42.9) % MCV 79 (79-97) fl MCH 26 L (28-32) pg MCHC 32 (30-34) % RDW 14.4 (13.2-15.2) % Plt Count 318 (140-440) K/mm3 Baso % (Auto) Digital Marketing Intern Add Manual Diff Complete Total Counted 100 Seg Neuts % (Manual) 63.0 (40.0-70.0) % Band Neutrophils % 7.0 % Lymphocytes % (Manual) 18.0 (13.4-35.0) % Reactive Lymphs % (Man) 0 % Monocytes % (Manual) 10.0 H (0.0-7.3) % Eosinophils % (Manual) 0 (0.0-4.3) % Basophils % (Manual) 2.0 H (0.0-1.8) % Metamyelocytes % 0 % Myelocytes % 0 % Promyelocytes % 0 % Blast Cells % 0 % Nucleated RBC % Not Reportable Seg Neutrophils # Man 3.2 (1.8-7.7) K/mm3 Band Neutrophils # 0.4 K/mm3 Lymphocytes # (Manual) 0.9 L (1.2-5.4) K/mm3 Abs React Lymphs (Man) 0.0 K/mm3 Monocytes # (Manual) 0.5 (0.0-0.8) K/mm3 Eosinophils # (Manual) 0.0 (0.0-0.4) K/mm3 Basophils # (Manual) 0.1 (0.0-0.1) K/mm3 Metamyelocytes # 0.0 K/mm3 Myelocytes # 0.0 K/mm3 Promyelocytes # 0.0 K/mm3 Blast Cells # 0.0 K/mm3 WBC Morphology Not Reportable Hypersegmented Neuts Not Reportable Hyposegmented Neuts Not Reportable Hypogranular Neuts Not Reportable Smudge Cells Not Reportable Toxic Granulation Not Reportable Toxic Vacuolation Not Reportable Dohle Bodies Not Reportable Pelger-Huet Anomaly Not Reportable Juan Rods Not Reportable Platelet Estimate Appears normal Clumped Platelets Not Reportable Plt Clumps, EDTA Not Reportable Large Platelets Not Reportable Giant Platelets Not Reportable Platelet Satelliting Not Reportable Plt Morphology Comment Not Reportable RBC Morphology Not Reportable Dimorphic RBCs Not Reportable Polychromasia Not Reportable Hypochromasia 1+ Poikilocytosis Not Reportable Anisocytosis Few Microcytosis Not Reportable Macrocytosis Not Reportable Spherocytes Not Reportable Pappenheimer Bodies Not Reportable Sickle Cells Not Reportable Target Cells Not Reportable Tear Drop Cells Not Reportable Ovalocytes Few Helmet Cells Not Reportable Galvan-[place] Bodies Not Reportable [place] Rings Not Reportable Nuris Cells Not Reportable Bite Cells Not Reportable Crenated Cell Not Reportable Elliptocytes Not Reportable Acanthocytes (Spur) Not Reportable Rouleaux Not Reportable Hemoglobin C Crystals Not Reportable Schistocytes Not Reportable Malaria parasites Not Reportable Will Bodies Not Reportable Hem Pathologist Commnt No Sodium 139 (137-145) mmol/L Potassium 3.6 (3.6-5.0) mmol/L Chloride 99.6 (98-107) mmol/L Carbon Dioxide 26 (22-30) mmol/L Anion Gap 17 mmol/L BUN 10 (7-17) mg/dL Creatinine 0.5 L (0.7-1.2) mg/dL Estimated GFR > 60 ml/min BUN/Creatinine Ratio 20 % Glucose 129 H (65-100) mg/dL Calcium 8.9 (8.4-10.2) mg/dL Total Bilirubin < 0.20 (0.1-1.2) mg/dL AST 16 (5-40) units/L ALT 12 (7-56) units/L Alkaline Phosphatase 66 (35-129) units/L Total Protein 6.7 (6.3-8.2) g/dL Albumin 3.8 L (3.9-5) g/dL Albumin/Globulin Ratio 1.3 % HCG, Qual Negative (Negative) Urine Color (Yellow) Urine Turbidity (Clear) Urine pH (5.0-7.0) Ur Specific [place] (1.003-1.030) Urine Protein (Negative) mg/dL Urine Glucose (UA) (Negative) mg/dL Urine Ketones (Negative) mg/dL Urine Blood (Negative) Urine Nitrite (Negative) Urine Bilirubin (Negative) Urine Urobilinogen (<2.0) mg/dL Ur Leukocyte Esterase (Negative) Urine WBC (Auto) (0.0-6.0) /HPF Urine RBC (Auto) (0.0-6.0) /HPF U Epithel Cells (Auto) (0-13.0) /HPF Urine Mucus /HPF 05//18 Range/Units Unknown WBC (4.5-11.0) K/mm3 RBC (3.65-5.03) M/mm3 Hgb (10.1-14.3) gm/dl Hct (30.3-42.9) % MCV (79-97) fl MCH (28-32) pg MCHC (30-34) % RDW (13.2-15.2) % Plt Count (140-440) K/mm3 Baso % (Auto) Add Manual Diff Total Counted Seg Neuts % (Manual) (40.0-70.0) % Band Neutrophils % % Lymphocytes % (Manual) (13.4-35.0) % Reactive Lymphs % (Man) % Monocytes % (Manual) (0.0-7.3) % Eosinophils % (Manual) (0.0-4.3) % Basophils % (Manual) (0.0-1.8) % Metamyelocytes % % Myelocytes % % Promyelocytes % % Blast Cells % % Nucleated RBC % Seg Neutrophils # Man (1.8-7.7) K/mm3 Band Neutrophils # K/mm3 Lymphocytes # (Manual) (1.2-5.4) K/mm3 Abs React Lymphs (Man) K/mm3 Monocytes # (Manual) (0.0-0.8) K/mm3 Eosinophils # (Manual) (0.0-0.4) K/mm3 Basophils # (Manual) (0.0-0.1) K/mm3 Metamyelocytes # K/mm3 Myelocytes # K/mm3 Promyelocytes # K/mm3 Blast Cells # K/mm3 WBC Morphology Hypersegmented Neuts Hyposegmented Neuts Hypogranular Neuts Smudge Cells Toxic Granulation Toxic Vacuolation Dohle Bodies Pelger-Huet Anomaly Juan Rods Platelet Estimate Clumped Platelets Plt Clumps, EDTA Large Platelets Giant Platelets Platelet Satelliting Plt Morphology Comment RBC Morphology Dimorphic RBCs Polychromasia Hypochromasia Poikilocytosis Anisocytosis Microcytosis Macrocytosis Spherocytes Pappenheimer Bodies Sickle Cells Target Cells Tear Drop Cells Ovalocytes Helmet Cells Galvan-Highpoint Bodies [place] Rings [place] Cells Bite Cells Crenated Cell Elliptocytes Acanthocytes (Spur) Rouleaux Hemoglobin C Crystals Schistocytes Malaria parasites Will Bodies Hem Pathologist Commnt Sodium (137-145) mmol/L Potassium (3.6-5.0) mmol/L Chloride (98-107) mmol/L Carbon Dioxide (22-30) mmol/L Anion Gap mmol/L BUN (7-17) mg/dL Creatinine (0.7-1.2) mg/dL Estimated GFR ml/min BUN/Creatinine Ratio % Glucose (65-100) mg/dL Calcium (8.4-10.2) mg/dL Total Bilirubin (0.1-1.2) mg/dL AST (5-40) units/L ALT (7-56) units/L Alkaline Phosphatase (35-129) units/L Total Protein (6.3-8.2) g/dL Albumin (3.9-5) g/dL Albumin/Globulin Ratio % HCG, Qual (Negative) Urine Color Yellow (Yellow) Urine Turbidity Clear (Clear) Urine pH 7.0 (5.0-7.0) Ur Specific [place] 1.020 (1.003-1.030) Urine Protein <15 mg/dl (Negative) mg/dL Urine Glucose (UA) Neg (Negative) mg/dL Urine Ketones Neg (Negative) mg/dL Urine Blood Neg (Negative) Urine Nitrite Neg (Negative) Urine Bilirubin Neg (Negative) Urine Urobilinogen < 2.0 (<2.0) mg/dL Ur Leukocyte Esterase Neg (Negative) Urine WBC (Auto) 1.0 (0.0-6.0) /HPF Urine RBC (Auto) 1.0 (0.0-6.0) /HPF U Epithel Cells (Auto) 6.0 (0-13.0) /HPF Urine Mucus Few /HPF - EKG Data -: EKG Interpreted by Me - EKG Data Interpretation: other (EKG shows sinus rhythm rate 88 and normal axis normal intervals no ST segment elevation or depression. 2200) - Medical Decision Making Patient was given IV hydration and IV Decadron. Patient be discharged home with Medrol Dosepak and refill her CellCept. Critical care attestation.: If time is entered above; I have spent that time in minutes in the direct care of this critically ill patient, excluding procedure time. ED Disposition Clinical Impression: SLE (systemic lupus erythematosus related syndrome) Disposition: TO HOME OR SELFCARE Is pt being admited?: No Does the pt Need Aspirin: No Condition: Stable Prescriptions: Mycophenolate [Cellcept] 1,000 mg PO BID 30 Days tablet Prednisone [predniSONE 10 mg (6-Day Pack, 21 Tabs)] 10 mg PO .TAPER #1 tab.ds.pk traMADol [Ultram] 50 mg PO Q6HR PRN #12 tablet PRN Reason: Pain Referrals: PRIMARY CARE, [Primary Care Provider] - 3-5 Days
[2017-11-15] MEDS ORDERED: ANTIVERT PO ONE (04:30)
[2017-11-15 04:39] VITALS: BP 112/70
[2017-11-15] MEDS ORDERED: ANTIVERT ONE (04:45)
== END 2017-11-15 06:04 | disposition home or self-care (01) ==
LOC: ED 21:51
DX: M32.9 Systemic lupus erythematosus, unspecified (principal); J45.909 Unspecified asthma, uncomplicated
CPT/HCPCS: 36415; 80053; 81001; 84703; 85007; 85025; 93005; 93010; 96361; 96374; 96375; 99284; J1100; J1170; J7030

== ENCOUNTER 2018-08-23 15:51 | Emergency (ER) | payer OTHER ==
--- NOTE | 2018-08-23 16:44 | Emergency Department Report ---
Blank Doc - Documentation Documentation: This 32 yo female here for pain from RA and lupus flare. She reports discoid l upus and sle and goes between here and [facility]. She reports rash flare to upper arms and generalized pain. Denies, cough, NVD,SOB or fever. takes steroids. PE Skin: erythema rash mixed with hypopigmented areas to arm in clusters to arms. his initial assessment diagnostic orders/clinical plan/treatment (s) is/Are subject change based on patient's health status, clinical progression and re- assessment by fellow clinical providers in the ED. Further treatment and work-up at subsequent clinical providers discetion. Patient/guardians urged not to elope from s their condition may be serious if not clinically assessed and managed. Inital order include:labs
[2018-08-23 17:15] LABS: Basophils % (Auto) 0.6 % (0.0-1.8); Eosinophils % (Auto) 0.4 % (0.0-4.3); Hematocrit 30.8 % (30.3-42.9); Lymphocytes # (Auto) 1.4 K/mm3 (1.2-5.4); Lymphocytes % (Auto) 30.5 % (13.4-35.0); Mean Corpuscular HGB Conc 33 % (30-34); Mean Corpuscular Volume 80 fl (79-97); Monocytes # (Auto) 0.3 K/mm3 (0.0-0.8); Monocytes % (Auto) 5.8 % (0.0-7.3); Platelet Count 315 K/mm3 (140-440); Red Blood Count 3.87 M/mm3 (3.65-5.03); Red Cell Distribution Width 15.1 % (13.2-15.2)
[2018-08-23 18:20] LABS: Alanine Aminotransferase 12 units/L (7-56); Albumin 3.7 g/dL (3.9-5); BUN/Creatinine Ratio 13; Blood Urea Nitrogen 8 mg/dL (7-17); Calcium 8.5 mg/dL (8.4-10.2); Hemolysis Index 12
[2018-08-23] MEDS ORDERED: IBUPROFEN PO ONE (20:34)
[2018-08-23] MEDS ORDERED: DELTASONE PO ONE (20:34)
--- NOTE | 2018-08-23 20:48 | Emergency Department Report ---
ED General Adult HPI - General Chief complaint: Pain General Stated complaint: LUPUS FLARE UP Time Seen by Provider: 08/23/18 16:43 Source: patient Mode of arrival: Ambulatory Limitations: No Limitations - History of Present Illness Initial comments: Patient is a 32-year-old female past medical history of lupus who presents with a lupus flare. Patient states that she's been out for lupus medications for last 2 weeks she states that she does have lupus rash on her arms her pain as a 6 out of 10 to make it happen. Nothing makes it better and nothing makes it worse. Patient has no nausea and she has no vomiting. She states that she does not want to take her elbow was her mother is requesting refills for her medication of her CellCept and prednisone. - Related Data Home Medications Medication Instructions Recorded Confirmed Last Taken predniSONE [Deltasone] 30 mg PO QAM 06/28/17 07/09/17 06/27/17 Previous Rx's Medication Instructions Recorded Last Taken Type Apixaban [Eliquis] 5 mg PO BID #70 tablet 07/12/17 Unknown Rx Apixaban [Eliquis] 5 mg PO BID #70 tablet 08/23/18 Unknown Rx Mycophenolate [Cellcept] 1,000 mg PO BID 30 Days tablet 08/23/18 Unknown Rx Prednisone [predniSONE 10 mg 10 mg PO .TAPER #1 tab.ds.pk 08/23/18 Unknown Rx (6-Day Pack, 21 Tabs)] traMADol [Ultram 50 MG tab] 50 mg PO Q6HR PRN #12 tablet 08/23/18 Unknown Rx Allergies Allergy/AdvReac Type Severity Reaction Status Date / Time hydroxychloroquine sulfate Allergy Shortness Verified 11/15/16 23:53 [From Plaquenil] of Breath oxycodone HCl [From Percocet] Allergy Hives Verified 07/30/14 08:04 ED Review of Systems ROS: Stated complaint: LUPUS FLARE UP Other details as noted in HPI Constitutional: denies: chills, fever Eyes: denies: eye pain, eye discharge, vision change ENT: denies: ear pain, throat pain Respiratory: denies: cough, shortness of breath, wheezing Cardiovascular: denies: chest pain, palpitations Endocrine: no symptoms reported Gastrointestinal: denies: abdominal pain, nausea, diarrhea Genitourinary: denies: urgency, dysuria, discharge Musculoskeletal: arthralgia, myalgia. denies: back pain, joint swelling Skin: rash. denies: lesions Neurological: denies: headache, weakness, paresthesias Psychiatric: denies: anxiety, depression Hematological/Lymphatic: denies: easy bleeding, easy bruising ED Past Medical Hx - Past Medical History Hx Congestive Heart Failure: No Hx Diabetes: No Hx Pulmonary Embolism: Yes Hx Asthma: Yes Hx COPD: No Additional medical history: bronchitis, systemic and skin Lupus - Surgical History Additional Surgical History: 2 c-sections - Social History Smoking Status: Never Smoker Substance Use Type: None - Medications Home Medications: Home Medications Medication Instructions Recorded Confirmed Last Taken Type predniSONE [Deltasone] 30 mg PO QAM 06/28/17 07/09/17 06/27/17 History Apixaban [Eliquis] 5 mg PO BID #70 tablet 07/12/17 Unknown Rx Apixaban [Eliquis] 5 mg PO BID #70 tablet 08/23/18 Unknown Rx Mycophenolate [Cellcept] 1,000 mg PO BID 30 Days tablet 08/23/18 Unknown Rx Prednisone [predniSONE 10 mg 10 mg PO .TAPER #1 tab.ds.pk 08/23/18 Unknown Rx (6-Day Pack, 21 Tabs)] traMADol [Ultram 50 MG tab] 50 mg PO Q6HR PRN #12 tablet 08/23/18 Unknown Rx ED Physical Exam - General Limitations: No Limitations General appearance: alert, in no apparent distress - Head Head exam: Present: atraumatic, normocephalic - Eye Eye exam: Present: normal appearance - ENT ENT exam: Present: mucous membranes moist - Neck Neck exam: Present: normal inspection - Respiratory Respiratory exam: Present: normal lung sounds bilaterally. Absent: respiratory distress - Cardiovascular Cardiovascular Exam: Present: regular rate, normal rhythm. Absent: systolic murmur, diastolic murmur, rubs, gallop - GI/Abdominal GI/Abdominal exam: Present: soft, normal bowel sounds - Extremities Exam Extremities exam: Present: normal inspection - Back Exam Back exam: Present: normal inspection - Neurological Exam Neurological exam: Present: alert, oriented X3 - Psychiatric Psychiatric exam: Present: normal affect, normal mood - Skin Skin exam: Present: warm, dry, intact, normal color. Absent: rash ED Course Vital Signs 08/23/18 15:58 Temperature 98.1 F Pulse Rate 96 H Respiratory 18 Rate Blood Pressure 130/72 O2 Sat by Pulse 100 Oximetry ED Medical Decision Making - Lab Data Result diagrams: 08/23/18 16:56 08/23/18 16:56 Lab Results 08/23/18 08/23/18 08/23/18 Range/Units 16:56 16:56 16:56 WBC 4.6 (4.5-11.0) K/mm3 RBC 3.87 (3.65-5.03) M/mm3 Hgb 10.0 L (10.1-14.3) gm/dl Hct 30.8 (30.3-42.9) % MCV 80 (79-97) fl MCH 26 L (28-32) pg MCHC 33 (30-34) % RDW 15.1 (13.2-15.2) % Plt Count 315 (140-440) K/mm3 Lymph % (Auto) 30.5 (13.4-35.0) % [place] % (Auto) 5.8 (0.0-7.3) % Eos % (Auto) 0.4 (0.0-4.3) % Baso % (Auto) 0.6 (0.0-1.8) % Lymph # 1.4 (1.2-5.4) K/mm3 [place] # 0.3 (0.0-0.8) K/mm3 Eos # 0.0 (0.0-0.4) K/mm3 Baso # 0.0 (0.0-0.1) K/mm3 Seg Neutrophils % 62.7 (40.0-70.0) % Seg Neutrophils # 2.9 (1.8-7.7) K/mm3 ESR 7 (0-20) mm/Hr Sodium 141 (137-145) mmol/L Potassium 4.0 (3.6-5.0) mmol/L Chloride 102.6 (98-107) mmol/L Carbon Dioxide 25 (22-30) mmol/L Anion Gap 17 mmol/L BUN 8 (7-17) mg/dL Creatinine 0.6 L (0.7-1.2) mg/dL Estimated GFR > 60 ml/min BUN/Creatinine Ratio 13 % Glucose 90 (65-100) mg/dL Calcium 8.5 (8.4-10.2) mg/dL Total Bilirubin < 0.20 (0.1-1.2) mg/dL AST 20 (5-40) units/L ALT 12 (7-56) units/L Alkaline Phosphatase 65 (35-129) units/L C-Reactive Protein (0.00-1.30) mg/dL Total Protein 7.2 (6.3-8.2) g/dL Albumin 3.7 L (3.9-5) g/dL Albumin/Globulin Ratio 1.1 % 08/23/18 Range/Units 16:56 WBC (4.5-11.0) K/mm3 RBC (3.65-5.03) M/mm3 Hgb (10.1-14.3) gm/dl Hct (30.3-42.9) % MCV (79-97) fl MCH (28-32) pg MCHC (30-34) % RDW (13.2-15.2) % Plt Count (140-440) K/mm3 Lymph % (Auto) (13.4-35.0) % [place] % (Auto) (0.0-7.3) % Eos % (Auto) (0.0-4.3) % Baso % (Auto) (0.0-1.8) % Lymph # (1.2-5.4) K/mm3 [place] # (0.0-0.8) K/mm3 Eos # (0.0-0.4) K/mm3 Baso # (0.0-0.1) K/mm3 Seg Neutrophils % (40.0-70.0) % Seg Neutrophils # (1.8-7.7) K/mm3 ESR (0-20) mm/Hr Sodium (137-145) mmol/L Potassium (3.6-5.0) mmol/L Chloride (98-107) mmol/L Carbon Dioxide (22-30) mmol/L Anion Gap mmol/L BUN (7-17) mg/dL Creatinine (0.7-1.2) mg/dL Estimated GFR ml/min BUN/Creatinine Ratio % Glucose (65-100) mg/dL Calcium (8.4-10.2) mg/dL Total Bilirubin (0.1-1.2) mg/dL AST (5-40) units/L ALT (7-56) units/L Alkaline Phosphatase (35-129) units/L C-Reactive Protein 1.20 (0.00-1.30) mg/dL Total Protein (6.3-8.2) g/dL Albumin (3.9-5) g/dL Albumin/Globulin Ratio % - Medical Decision Making Chief medical diagnostics: Lupus flareup Differential medical diagnosis: Rheumatoid arthritis, osteoarthritis, contact dermatitis On CBC BMP ESR CRP I will also give patient oral steroids and I will give patient refill of her medication. Patient's laboratory workup is unremarkable also and patient home with refills of her L Aquin[facility] refills of CellCept and refills of her prednisone I will go by what she has been taking the past. I will do no new changes to her medication. Patient states that she has been unable to fall up with her primary care doctor due to the government shut down. Critical care attestation.: If time is entered above; I have spent that time in minutes in the direct care of this critically ill patient, excluding procedure time. ED Disposition Clinical Impression: Skin rash Lupus Qualifiers: Systemic lupus erythematosus type: unspecified Systemic lupus erythematosus organ involvement: unspecified Qualified Code(s): M32.9 - Systemic lupus erythem atosus, unspecified Disposition: DC-01 TO HOME OR SELFCARE Is pt being admited?: No Does the pt Need Aspirin: No Condition: Stable Prescriptions: Apixaban [Eliquis] 5 mg PO BID #70 tablet Mycophenolate [Cellcept] 1,000 mg PO BID 30 Days tablet Prednisone [predniSONE 10 mg (6-Day Pack, 21 Tabs)] 10 mg PO .TAPER #1 tab.ds.pk traMADol [Ultram 50 MG tab] 50 mg PO Q6HR PRN #12 tablet PRN Reason: Pain Referrals: JOSEPH BELL MD [Primary Care Provider] - 3-5 Days
[2018-08-23 21:52] VITALS: BP 132/79
== END 2018-08-23 21:54 | disposition home or self-care (01) ==
LOC: ED 15:51
DX: M32.9 Systemic lupus erythematosus, unspecified (principal); J45.909 Unspecified asthma, uncomplicated; Z86.711 Personal history of pulmonary embolism; Z88.1 Allergy status to other antibiotic agents; Z88.5 Allergy status to narcotic agent
CPT/HCPCS: 36415; 80053; 85025; 85652; 86140; 99283; J7512

== ENCOUNTER 2018-10-19 14:37 | Emergency (ER) | payer OTHER ==
[2018-10-19] MEDS ORDERED: DECADRON IV ONE (15:10)
[2018-10-19] MEDS ORDERED: MORPHINE IV ONE (15:10)
[2018-10-19] MEDS ORDERED: BENADRYL IV ONE (15:12)
[2018-10-19 15:48] LABS: Basophils # (Auto) 0.1 K/mm3 (0.0-0.1); Basophils % (Auto) 1.3 % (0.0-1.8); Eosinophils % (Auto) 0.8 % (0.0-4.3); Hematocrit 32.9 % (30.3-42.9); Hemoglobin 10.3 gm/dl (10.1-14.3); Lymphocytes # (Auto) 0.8 K/mm3 (1.2-5.4); Lymphocytes % (Auto) 13.7 % (13.4-35.0); Mean Corpuscular HGB Conc 31 % (30-34); Mean Corpuscular Volume 82 fl (79-97); Monocytes # (Auto) 0.3 K/mm3 (0.0-0.8); Platelet Count 310 K/mm3 (140-440); Red Blood Count 4.04 M/mm3 (3.65-5.03); Red Cell Distribution Width 15.2 % (13.2-15.2)
[2018-10-19 15:59] LABS: BUN/Creatinine Ratio 13; Blood Urea Nitrogen 12 mg/dL (7-17); Calcium 8.6 mg/dL (8.4-10.2); Hemolysis Index 6
--- NOTE | 2018-10-19 17:38 | Emergency Department Report ---
ED General Adult HPI - General Chief complaint: Pain General Stated complaint: LUPUS FLARE Time Seen by Provider: 10/19/18 15:10 Source: patient Mode of arrival: Wheelchair Limitations: No Limitations - History of Present Illness Initial comments: Patient is a 33-year-old [place] female who is presenting with generalized aches and pains as well as a rash on the face, arms and torso. Patient has run out of her CellCept as well as prednisone. Patient states CellCept is approximately $500 month and she was unable to have this filled. Patient denies any fevers chills nausea vomiting diarrhea at this time. Severity scale (0 -10): 8 Quality: burning, aching Consistency: constant Associated Symptoms: malaise. denies: confusion, chest pain, cough, diaphoresis, fever/chills, headaches, loss of appetite, nausea/vomiting, rash, seizure - Related Data Home Medications Medication Instructions Recorded Confirmed Last Taken predniSONE [Deltasone] 30 mg PO QAM 06/28/17 07/09/17 06/27/17 Previous Rx's Medication Instructions Recorded Last Taken Type Apixaban [Eliquis] 5 mg PO BID #70 tablet 07/12/17 Unknown Rx Apixaban [Eliquis] 5 mg PO BID #70 tablet 08/23/18 Unknown Rx Prednisone [predniSONE 10 mg 10 mg PO .TAPER #1 tab.ds.pk 08/23/18 Unknown Rx (6-Day Pack, 21 Tabs)] Mycophenolate [Cellcept] 1,000 mg PO BID 30 Days #120 tablet 10/19/18 Unknown Rx predniSONE [Deltasone] 20 mg PO QDAY #30 tab 10/19/18 Unknown Rx traMADol [Ultram 50 MG tab] 50 mg PO Q6HR PRN #12 tablet 10/19/18 Unknown Rx Allergies Allergy/AdvReac Type Severity Reaction Status Date / Time hydroxychloroquine sulfate Allergy Shortness Verified 11/15/16 23:53 [From Plaquenil] of Breath oxycodone HCl [From Percocet] Allergy Hives Verified 07/30/14 08:04 ED Review of Systems ROS: Stated complaint: LUPUS FLARE Other details as noted in HPI Comment: All other systems reviewed and negative ED Past Medical Hx - Past Medical History Previous Medical History?: Yes Hx Congestive Heart Failure: No Hx Diabetes: No Hx Pulmonary Embolism: Yes Hx Arthritis: Yes Hx Asthma: Yes Hx COPD: No Additional medical history: bronchitis, systemic and skin Lupus - Surgical History Past Surgical History?: Yes Additional Surgical History: 2 c-sections - Social History Smoking Status: Never Smoker Substance Use Type: Marijuana - Medications Home Medications: Home Medications Medication Instructions Recorded Confirmed Last Taken Type predniSONE [Deltasone] 30 mg PO QAM 06/28/17 07/09/17 06/27/17 History Apixaban [Eliquis] 5 mg PO BID #70 tablet 07/12/17 Unknown Rx Apixaban [Eliquis] 5 mg PO BID #70 tablet 08/23/18 Unknown Rx Prednisone [predniSONE 10 mg 10 mg PO .TAPER #1 tab.ds.pk 08/23/18 Unknown Rx (6-Day Pack, 21 Tabs)] Mycophenolate [Cellcept] 1,000 mg PO BID 30 Days #120 tablet 10/19/18 Unknown Rx predniSONE [Deltasone] 20 mg PO QDAY #30 tab 10/19/18 Unknown Rx traMADol [Ultram 50 MG tab] 50 mg PO Q6HR PRN #12 tablet 10/19/18 Unknown Rx ED Physical Exam - General Limitations: No Limitations General appearance: alert, in no apparent distress - Head Head exam: Present: atraumatic, normocephalic - Eye Eye exam: Present: normal appearance - ENT ENT exam: Present: mucous membranes moist - Neck Neck exam: Present: normal inspection - Respiratory Respiratory exam: Present: normal lung sounds bilaterally. Absent: respiratory distress, wheezes, rales, rhonchi - Cardiovascular Cardiovascular Exam: Present: regular rate, normal rhythm. Absent: systolic murmur, diastolic murmur, rubs, gallop - GI/Abdominal GI/Abdominal exam: Present: soft, normal bowel sounds - Extremities Exam Extremities exam: Present: normal inspection - Back Exam Back exam: Present: normal inspection - Neurological Exam Neurological exam: Present: alert, oriented X3 - Psychiatric Psychiatric exam: Present: normal affect, normal mood - Skin Skin exam: Present: warm, dry, intact, normal color, rash - Expanded Skin Exam Expanded Type of lesion: Present: rash Distribution of rash: face, neck, thorax, chest, back, RUE, LUE Description of rash: Present: erythematous, confluent ED Course Vital Signs 10/19/18 10/19/18 15:30 16:06 Respiratory 16 16 Rate O2 Sat by Pulse 98 Oximetry ED Medical Decision Making - Lab Data Result diagrams: 10/19/18 15:24 10/19/18 15:24 - Medical Decision Making She was given IV Decadron MS for pain relief. I was able to find the CellCept discount coupon or good Rx website. 120 tablets at [facility] pharmacy will cost of $45. Patient be given the coupon should be discharged home with this prescription as well as prednisone. Critical care attestation.: If time is entered above; I have spent that time in minutes in the direct care of this critically ill patient, excluding procedure time. ED Disposition Clinical Impression: Lupus Disposition: [id number] TO HOME OR SELFCARE Is pt being admited?: No Does the pt Need Aspirin: No Condition: Stable Prescriptions: Mycophenolate [Cellcept] 1,000 mg PO BID 30 Days #120 tablet traMADol [Ultram 50 MG tab] 50 mg PO Q6HR PRN #12 tablet PRN Reason: Pain Referrals: JUANITA VALLADARES MD [Staff Physician] - 3-5 Days Time of Disposition: 17:40
[2018-10-19 18:24] VITALS: BP 122/67
== END 2018-10-19 18:25 | disposition home or self-care (01) ==
LOC: ED 14:37
DX: M32.9 Systemic lupus erythematosus, unspecified (principal); Z86.711 Personal history of pulmonary embolism; M19.90 Unspecified osteoarthritis, unspecified site; J45.909 Unspecified asthma, uncomplicated; F12.10 Cannabis abuse, uncomplicated; Z88.3 Allergy status to other anti-infective agents; Z88.5 Allergy status to narcotic agent
CPT/HCPCS: 36415; 80048; 85025; 96374; 96375; 99283; J1100; J1200; J2270